=== PATIENT | female | born 1960 | race Caucasian/White ===

== ENCOUNTER → 2016-12-20 | Outpatient (CLI) | payer BC, OTHER ==
[~2016-12-20] MED LIST: CLON0.5T20 PO; HYDR-5688 PO; LINE1TAB7 PO; SENN-61 PO; VTMB122500 SL
== END | disposition home or self-care (01) ==
LOC: C.LABPVFM 15:54
PROVIDERS: ATTEND Nurse Practitioner
DX: N39.0 Urinary tract infection, site not specified (principal)

== ENCOUNTER → 2017-03-24 | Outpatient (CLI) | payer BC ==
[2017-03-28 14:28] LABS: HERPES SIMPLEX CULT SOURCE GENITAL-VULVA; HERPES SIMPLEX VIRUS CULT ISOLATED (NOT ISOLATED)
[2017-03-29 11:33] LABS: HSVTYPE1REFLEX ONLY!DON'T ORDR ISOLATED (NOT ISOLATED); HSVTYPE2REFLEX ONLY!DON'T ORDR NOT ISOLATED (NOT ISOLATED)
== END | disposition home or self-care (01) ==
LOC: C.LABSPEC 13:11
PROVIDERS: ATTEND Physician Assistant
DX: N76.6 Ulceration of vulva (principal)

== ENCOUNTER → 2017-03-24 | Outpatient (CLI) | payer BC | END | disposition home or self-care (01) | LOC: C.LABSPEC 14:09 → C.PAPS 14:11 | PROVIDERS: ATTEND Physician Assistant | DX: Z12.4 Encounter for screening for malignant neoplasm of cervix (principal) ==

== ENCOUNTER → 2017-06-12 | Outpatient (CLI) | payer BC ==
--- NOTE | 2017-06-13 07:54 | MAMMOGRAPHY REPORT ---
BILATERAL DIGITAL SCREENING MAMMOGRAM TOMOSYNTHESIS WITH CAD: 06/12/2017 CLINICAL HISTORY: Routine screening. Patient has no complaints. TECHNIQUE: Breast tomosynthesis in addition to standard 2D mammography was performed. Current study was also evaluated with a Computer Aided Detection (CAD) system. COMPARISON: Comparison is made to exams dated: 06/09/2016 mammogram, 01/07/2014 mammogram, 11/23/2012 mammogram, 01/01/2010 mammogram - [facility], and 12/19/2008. BREAST COMPOSITION: The tissue of both breasts is almost entirely fatty. FINDINGS: There has been no significant interval change comparing to prior mammograms. No new suspi cious mass, architectural distortion or cluster of microcalcifications is seen. IMPRESSION: ACR BI-RADS CATEGORY 1: NEGATIVE There is no mammographic evidence of malignancy. A 1 year screening mammogram is recommended. The pa tient will receive written notification of the results. Approximately 10% of breast cancers are not detected with mammography. A negative mammographic report should not delay biopsy if a clinically suggestive mass is present. Ashleigh Patel M.D. ay/:06/12/2017 18:38:[address] Sql Developer: Sharon HERNANDEZ(R)(M), [facility] letter sent: Normal 1/2 BI-RADS Code: ACR BI-RADS Category 1: Negative
== END | disposition home or self-care (01) ==
LOC: C.MAMM 12:00
PROVIDERS: ATTEND Family Medicine
DX: Z12.31 Encounter for screening mammogram for malignant neoplasm of breast (principal)

== ENCOUNTER → 2018-01-25 | Outpatient (CLI) | payer BC ==
[2018-01-25 13:01] LABS: HEMOGLOBIN A1C 5.8 % (4.5-5.6)
[2018-01-25 13:02] LABS: BLOOD UREA NITROGEN 16 mg/dl (7-18); CALCIUM 8.6 mg/dl (8.5-10.1); CARBON DIOXIDE 26 mmol/L (21-32); CHOLESTEROL 192 mg/dl (0-200); GLUCOSE 90 mg/dl (70-99); LDL CHOLESTEROL CALCULATED 113 mg/dl; SODIUM 142 mmol/L (136-145)
== END | disposition home or self-care (01) ==
LOC: C.LABPVFM 08:14
PROVIDERS: ATTEND Family Medicine
DX: G25.81 Restless legs syndrome (principal)

== ENCOUNTER 2021-08-06 00:21 | Inpatient (IN) ==
[2021-08-06] MEDS ORDERED: SODIUM CHLORIDE 0.9% 1000ML 1,000 ML IV ONE (00:35)
--- NOTE | 2021-08-06 00:39 | Emergency Department Note ---
Impression & Plan Headache, UTI (urinary tract infection), Back pain ADMIT ED Provider Note HPI: The patient is a 61-year-old female who presents the emergency department with a chief complaint of headache and some lower back pain is been ongoing for about the past 8 days after she had a fall down 4 hard wooden stairs inside her home. Patient states this happened 8 days ago. Patient states she has had continuous headaches during this time, they seem to wax and wane in severity. Patient states it was more severe today. States it is generalized. She was concerned that she may have possibly suffered a concussion during her fall she did hit the back of her head. Patient also states that throughout the day she has had some chills, subjective fevers. She also complains of some pain in her lower back. Denies any abdominal pain, denies any nausea or vomiting. On arrival here to the ED the patient is alert, she is hemodynamically stable, she is in no acute distress on my initial assessment. ROS: -MSK: Lower back pain -Neuro: Headache status post fall 5 days ago -General: Subjective fever/chills *10 point review systems was conducted and is otherwise negative unless stated above *Outpatient medications and allergy history reviewed PE: General: Alert, NAD HEENT: Normocephalic, atraumatic Eyes: Extraocular eye movement is intact, no scleral erythema Pulmonary: Clear to auscultation bilaterally, no wheezing Cardio: Regular rate and rhythm GI: Abdomen is soft, nontender : No suprapubic tenderness MSK: No evidence of trauma or malformation of the extremities, no edema, there is mild tenderness in the lower lumbar spine region to palpation laterally Skin: No evidence of rash Neuro: Alert, no focal deficits Psychiatric: Cooperative aerographer: - An order was placed for continuous cardiac monitoring - Patient was noted to be in sinus rhythm with rate of 90 CT HEAD: No intracranial hemorrhage, mass-effect or midline shift. There is no abnormal extra axial fluid collection. No evidence of acute infarct. Mild periventricular white matter hypodensities are most consistent with chronic micro-angiopathy. The visualized paranasal sinuses and mastoid air cells are clear. No fracture. Radiologist: Daksha Mendiola MD CT L SPINE: No fracture or malalignment. Degenerative changes spine. Incidentally noted 1.6 cm left calculus within the renal pelvis. Mild left hydronephrosis. Radiologist: Daksha Mendiola MD Medical Decision Making: Patient presented to the emergency department with multiple issues, she has had some headaches since she had a fall 5 days ago, she states that she has also had some lower back pain. In addition patient has had some generalized feeling of myalgias and chills and subjective fevers. CT imaging of the head was obtained that shows no evidence of intracranial bleeding, CT imaging of the L-spine was also obtained and shows no fracture however there is an incidentally noted 1.6 cm left calculus within the renal pelvis with associated mild hydronephrosis. Upon finding this I did discuss his symptoms with the patient, she tells me she has had some left flank pain recently, states she is also had dysuria. Urinalysis was obtained and does show evidence of infection, renal function is within normal limits, I discussed the above findings with on-call urology, Dr. Adam, who did recommend admission and will consult on the case for possible st enting later today. I discussed this with the patient she is in agreement. She does have penicillin allergy and therefore was given a dose of ciprofloxacin via IV for urinary tract infection and obstructing stone. Patient was admitted in stable condition for further care. Diagnosis: 1. Headache status post fall 2. Urinary tract infection 3. Left-sided kidney stone with obstruction/hydronephrosis 4. Lower back pain Disposition: Admission Flynn Wade DO Emergency Medicine Past Med/Surg History Medical History Dyspareunia Herpes, genital Vaginal dryness Vertigo Surgical History Gastric bypass status for obesity H/O tubal ligation Hx of tonsillectomy Family History Aunt Breast cancer Mother Diabetes Grandmother Diabetes Myocardial infarction Grandfather Myocardial infarction Uncle Prostate cancer Denies family history of Ovarian cancer Social History Smoking Status: Never smoker Second Hand Exposure: No; Hx Alcohol Use: Yes Hx Substance Use: No marital status: Current Living Situation: Spouse current occupational status: employed Feels Safe at Home: Yes caffeine: Yes (tea) Dental Care, Regularly: Yes Seatbelt Use: always Sunscreen Use: Yes Allergies Allergies Allergy/AdvReac Type Severity Reaction Status Date / Time amoxicillin Allergy Mild Rash Verified 08/06/21 00:33 Penicillins Allergy Unknown HIVES/RASH Verified 08/06/21 00:33 Home Meds Home Medications Medication Instructions Recorded Confirmed tramadol 50 mg tablet 50 - 100 mg PO Q6H PRN 08/06/21 08/06/21 Previous Rx's Medication Instructions Recorded valacyclovir 1 gram tablet 1,000 mg PO DAILY 90 Days #90 tab 09/17/20 estradiol (Estring) 1 vag ring VAGINAL Q90D #1 ea 10/30/20 clonazepam 0.5 mg tablet 0.5 mg PO HS #30 tab 06/01/21 prednisone 50 mg tablet 50 mg PO DAILY #5 tab 08/02/21 naproxen 500 mg tablet 500 mg PO BID PRN #14 tab 08/06/21 oxycodone-acetaminophen 5 mg-325 1 tab PO Q8H PRN #14 tab 08/06/21 mg tablet (Percocet) sulfamethoxazole 800 1 tab PO BID 7 Days #14 tab 08/06/21 mg-trimethoprim 160 mg tablet (Bactrim DS) tamsulosin 0.4 mg capsule (Flomax) 0.4 mg PO DAILY #14 cap 08/06/21 Results & Data (ED) Vital Signs Vital Signs - 24 hr 08/06/21 00:28 08/06/21 01:11 08/06/21 01:38 Temperature 37.8 C H Temperature Source Oral Pulse Rate 122 H 109 H 107 H Pulse Rate from SpO2 Sensor 109 H Respiratory Rate 18 22 21 Respiratory Effort / Characteristics Non-Labored Respiratory Depth Normal Blood Pressure 156/75 H Blood Pressure Mean 102 Pulse Oximetry 96 94 Oxygen Delivery Method Room Air Sepsis Recent Fever Within 48 Hours No Sepsis New/Unexplained Change in Mental Status No Sepsis Action Taken by Nursing No Action Required 08/06/21 02:00 08/06/21 02:30 08/06/21 03:00 Temperature Temperature Source Pulse Rate 105 H 101 H 101 H Pulse Rate from SpO2 Sensor Respiratory Rate 19 20 14 Respiratory Effort / Characteristics Respiratory Depth Blood Pressure 114/69 101/56 L Blood Pressure Mean 84 71 Pulse Oximetry Oxygen Delivery Method Sepsis Recent Fever Within 48 Hours Sepsis New/Unexplained Change in Mental Status Sepsis Action Taken by Nursing 08/06/21 03:30 08/06/21 04:00 08/06/21 04:30 Temperature Temperature Source Pulse Rate 99 H 94 H 92 H Pulse Rate from SpO2 Sensor Respiratory Rate 18 19 17 Respiratory Effort / Characteristics Respiratory Depth Blood Pressure 102/55 L Blood Pressure Mean 70 Pulse Oximetry Oxygen Delivery Method Sepsis Recent Fever Within 48 Hours Sepsis New/Unexplained Change in Mental Status Sepsis Action Taken by Nursing 08/06/21 05:00 08/06/21 05:30 08/06/21 06:00 Temperature Temperature Source Pulse Rate 90 89 96 H Pulse Rate from SpO2 Sensor Respiratory Rate 16 18 19 Respiratory Effort / Characteristics Respiratory Depth Blood Pressure 107/59 L 105/62 Blood Pressure Mean 75 76 Pulse Oximetry Oxygen Delivery Method Sepsis Recent Fever Within 48 Hours Sepsis New/Unexplained Change in Mental Status Sepsis Action Taken by Nursing Laboratory Data Result diagrams: 08/06/21 00:26 08/06/21 00:26 Lab Results 08/06/21 08/06/21 08/06/21 Range/Units 00:26 00:26 03:40 WBC 5.81 (4.8-10.8) K/uL RBC 4.24 (4.2-5.4) M/uL Hgb 13.2 (12.0-16.0) g/dL Hct 39.8 (37-47) % MCV 93.9 (80-100) fL MCH 31.1 (25-34) pg MCHC 33.2 (32-36) g/dL RDW Std Deviation 44.4 (36.4-46.3) fL RDW Coeff of Sachi 12.9 (11.5-14.5) % Plt Count 163 (130-400) K/uL MPV 10.2 (7.4-10.4) fL Immature Gran % (Auto) 0.5 % Neut % (Auto) 92.6 % Lymph % (Auto) 6.5 % [place] % (Auto) 0.2 % Eos % (Auto) 0.0 % Baso % (Auto) 0.2 % Neut # (Auto) 5.38 (1.4-6.5) K/uL Lymph # (Auto) 0.38 L (1.2-3.4) K/uL [place] # (Auto) 0.01 L (0.11-0.59) K/uL Eos # (Auto) 0.00 (0-0.5) K/uL Baso # (Auto) 0.01 (0-0.2) K/uL Immature Gran # (Auto) 0.03 H (0.00-0.02) K/uL Sodium 140 (136-145) mmol/L Potassium 3.9 (3.5-5.1) mmol/L Chloride 106 (98-107) mmol/L Carbon Dioxide 27 (21-32) mmol/L Anion Gap 7 (3-11) BUN 17 (6-23) mg/dl Creatinine 0.69 (0.6-1.2) mg/dl Est Cr Clr Drug Dosing 93.2 ml/min Est GFR ( Amer) 108.9 ml/min Est GFR (Non-Af Amer) 94.0 ml/min BUN/Creatinine Ratio 24.6 H (10-20) Glucose 118 H (70-99(Fasting)) mg/dl Calcium 8.7 (8.5-10.1) mg/dl Total Bilirubin 0.6 (0.2-1.0) mg/dl AST 25 (13-39) U/L ALT 47 (7-52) U/L Alkaline Phosphatase 82 (34-104) U/L Total Protein 6.1 (6.0-8.3) gm/dl Albumin 3.7 (3.4-5.0) gm/dl Globulin 2.4 L (2.5-4.0) gm/dl Albumin/Globulin Ratio 1.5 (0.9-2) Urine Color Yellow Urine Appearance Turbid A (Clear) Urine pH 5.0 (4.5-7.5) Ur Specific [place] 1.020 (1.000-1.030) Urine Protein 2+ H (Negative) Urine Glucose (UA) Negative (Negative) Urine Ketones Trace H (Negative) Urine Blood 3+ H (Negative) Urine Nitrite Positive A (Negative) Urine Bilirubin Negative (Negative) Urine Urobilinogen Negative (Negative) Ur Leukocyte Esterase 3+ H (Negative) Urine WBC (Auto) >30 H (0-5) /hpf Urine RBC (Auto) 5-10 H (0-4) /hpf U Hyaline Cast (Auto) 1-5 (0-5) /lpf U Epithel Cells (Auto) >30 H (0-5) /lpf Urine Bacteria (Auto) 4+ H (Negative) Urine Yeast Not Reportable SARS-CoV-2, RNA, NAAT (NEGATIVE) 08/06/21 Range/Units 06:07 WBC (4.8-10.8) K/uL RBC (4.2-5.4) M/uL Hgb (12.0-16.0) g/dL Hct (37-47) % MCV (80-100) fL MCH (25-34) pg MCHC (32-36) g/dL RDW Std Deviation (36.4-46.3) fL RDW Coeff of Sachi (11.5-14.5) % Plt Count (130-400) K/uL MPV (7.4-10.4) fL Immature Gran % (Auto) % Neut % (Auto) % Lymph % (Auto) % [place] % (Auto) % Eos % (Auto) % Baso % (Auto) % Neut # (Auto) (1.4-6.5) K/uL Lymph # (Auto) (1.2-3.4) K/uL [place] # (Auto) (0.11-0.59) K/uL Eos # (Auto) (0-0.5) K/uL Baso # (Auto) (0-0.2) K/uL Immature Gran # (Auto) (0.00-0.02) K/uL Sodium (136-145) mmol/L Potassium (3.5-5.1) mmol/L Chloride (98-107) mmol/L Carbon Dioxide (21-32) mmol/L Anion Gap (3-11) BUN (6-23) mg/dl Creatinine (0.6-1.2) mg/dl Est Cr Clr Drug Dosing ml/min Est GFR ( Amer) ml/min Est GFR (Non-Af Amer) ml/min BUN/Creatinine Ratio (10-20) Glucose (70-99(Fasting)) mg/dl Calcium (8.5-10.1) mg/dl Total Bilirubin (0.2-1.0) mg/dl AST (13-39) U/L ALT (7-52) U/L Alkaline Phosphatase (34-104) U/L Total Protein (6.0-8.3) gm/dl Albumin (3.4-5.0) gm/dl Globulin (2.5-4.0) gm/dl Albumin/Globulin Ratio (0.9-2) Urine Color Urine Appearance (Clear) Urine pH (4.5-7.5) Ur Specific [place] (1.000-1.030) Urine Protein (Negative) Urine Glucose (UA) (Negative) Urine Ketones (Negative) Urine Blood (Negative) Urine Nitrite (Negative) Urine Bilirubin (Negative) Urine Urobilinogen (Negative) Ur Leukocyte Esterase (Negative) Urine WBC (Auto) (0-5) /hpf Urine RBC (Auto) (0-4) /hpf U Hyaline Cast (Auto) (0-5) /lpf U Epithel Cells (Auto) (0-5) /lpf Urine Bacteria (Auto) (Negative) Urine Yeast SARS-CoV-2, RNA, NAAT NEGATIVE (NEGATIVE) Administered Medications Discontinued Medications Sodium Chloride (Nss 1000ml) 1,000 mls @ 999 mls/hr IV .[id number] ONE Stop: 08/06/21 01:35 Last Infusion: 08/06/21 03:50 Dose: 0 mls/hr Documented by: [id number] Admin: 08/06/21 02:09 Dose: 999 mls/hr Documented by: [id number] Ciprofloxacin (Cipro / D5w) 400 mg in 200 mls @ 100 mls/hr IV NOW STA; Protocol Stop: 08/06/21 06:36 Last Admin: 08/06/21 04:43 Dose: 100 mls/hr Documented by: [id number] Trimethoprim/Sulfamethoxazole (Sulfamethoxazole/Trimethoprim Ds 800/160mg Tab) 1 tab PO NOW ONE Stop: 08/06/21 04:13 Last Admin: 08/06/21 04:41 Dose: Not Given Documented by: [id number] Discharge Plan Visit Data Chief Complaint: Headache Stated Complaint: HEADACHE/SHAKY/CHILLS ED Provider: Flynn Wade Discharge Problem: Headache, UTI (urinary tract infection), Back pain Patient Disposition: Home - Self-Care Condition: Good Discharge Instructions Krames/Other Patient Handouts: Kidney Stone (Urine), ED [facility] UTI Activity Restrictions/Additional Instructions: Please follow-up with urology within the next 2 to 3 days for reassessment, please return to the emergency department with any new or worsening symptoms. Please take your medications as prescribed. Forms Stand Alone Forms: My [facility], Virtual Emergency Department, Important Visit Information Prescriptions Prescriptions: New sulfamethoxazole-trimethoprim [Bactrim DS] 800-160 mg tablet 1 tab PO BID 7 Days Qty: 14 RF: 0 naproxen 500 mg tablet 500 mg PO BID PRN (Reason: pain) Qty: 14 RF: 0 oxycodone-acetaminophen [Percocet] 5-325 mg tablet 1 tab PO Q8H PRN (Reason: pain) Qty: 14 RF: 0 tamsulosin [Flomax] 0.4 mg capsule 0.4 mg PO DAILY Qty: 14 RF: 0 No Action clonazepam 0.5 mg tablet 0.5 mg PO HS Qty: 30 RF: 5 prednisone 50 mg tablet 50 mg PO DAILY Qty: 5 RF: 0 valacyclovir 1 gram tablet 1,000 mg PO DAILY 90 Days Qty: 90 RF: 0 Estring 2 mg (7.5 mcg /24 hour) ring 1 vag ring vaginal Q90D Qty: 1 RF: 3 tramadol 50 mg tablet 50 - 100 mg PO Q6H PRN (Reason: pain) RF: 0 Referrals Referrals: Birgit Chan MD [Primary Care Provider] - Yinka Adam MD [Physician] - Discharge Problem: Headache Qualifiers: Headache type: unspecified Headache chronicity pattern: unspecified pattern Intractability: not intractable Qualified Code(s): R51.9 - Headache, unspecified UTI (urinary tract infection) Qualifiers: Urinary tract infection type: site unspecified Hematuria presence: with hematuria Qualified Code(s): N39.0 - Urinary tract infection, site not specified Back pain Qualifiers: Back pain location: low back pain Chronicity: unspecified Back pain laterality: unspecified Sciatica presence: without sciatica Qualified Code(s): M54.50 - Low back pain, unspecified
[2021-08-06 01:05] LABS: Basophils # (auto) 0.01 K/uL (0-0.2); Basophils % (auto) 0.2 %; Hematocrit (blood only) 39.8 % (37-47); Hemoglobin 13.2 g/dL (12.0-16.0); Immature Granulocytes # (auto) 0.03 K/uL (0.00-0.02); Immature Granulocytes % (auto) 0.5 %; Lymphocytes # (auto) 0.38 K/uL (1.2-3.4); Lymphocytes % (auto) 6.5 %; Mean Corpuscular Hemoglobin 31.1 pg (25-34); Mean Corpuscular Hgb Conc 33.2 g/dL (32-36); Mean Corpuscular Volume 93.9 fL (80-100); Mean Platelet Volume 10.2 fL (7.4-10.4); Monocytes # (auto) 0.01 K/uL (0.11-0.59); Monocytes % (auto) 0.2 %; Neutrophils # (auto) 5.38 K/uL (1.4-6.5); Neutrophils % (auto) 92.6 %; Platelet Count 163 K/uL (130-400); RDW Coefficient of Variation 12.9 % (11.5-14.5); RDW Standard Deviation 44.4 fL (36.4-46.3); Red Blood Count 4.24 M/uL (4.2-5.4); White Blood Count 5.81 K/uL (4.8-10.8)
[2021-08-06 01:13] LABS: Albumin Globulin Ratio 1.5 (0.9-2); Albumin Level 3.7 gm/dl (3.4-5.0); BUN Creatinine Ratio 24.6 (10-20); Bilirubin,Total 0.6 mg/dl (0.2-1.0); Calcium 8.7 mg/dl (8.5-10.1); Creatinine Clr Calc Pharmacy 93.2 ml/min; Est GFR (African American) 108.9 ml/min; Globulin 2.4 gm/dl (2.5-4.0); Potassium 3.9 mmol/L (3.5-5.1); Total Protein 6.1 gm/dl (6.0-8.3)
[2021-08-06 04:02] LABS: Appearance Urine Turbid (Clear); Bacteria Urine Automated 4+ (Negative); Bilirubin Urine Negative (Negative); Blood Urine 3+ (Negative); Color Urine Yellow; Epithelial Cell Urine Auto >30 /lpf (0-5); Glucose Urine UA Negative (Negative); Ketones Urine Trace (Negative); Leukocyte Esterase Urine 3+ (Negative); Nitrite Urine Positive (Negative); Protein Urine 2+ (Negative); Urobilinogen Urine Negative (Negative); WBC Urine Automated >30 /hpf (0-5)
[2021-08-06] MEDS ORDERED: SULFAMETHOXAZOLE/TRIMETHOPRIM DS 800/160MG TAB PO ONE (04:12)
[2021-08-06] MEDS ORDERED: CIPROFLOXACIN / D5W 400 MG/200 ML BAG IV STA (04:37)
--- NOTE | 2021-08-06 05:36 | History & Physical Report ---
Date of Service August 06, 2021 Assessment & Plan (1) Nephrolithiasis: Plan: Patient with large 1.6cm stone noted in the left renal pelvis with hydronephrosis. +UA. Complaining of left flank pain as well as intermittent subjective fevers, rigors and nausea. UA is suggestion of infection - bacteria present. Concerning for infected kidney stone. At this time she is afebrile, HD stable, non-toxic in appearance. Pain is well controlled -Admit to medical -Follow cultures, urine sent from ER. Blood cultures ordered -IVF - LR at 80mL/hr x 2 liters -zofran PRN nausea -Tylenol PRN fever -Tramadol PRN Pain -Urology consultation appreciated -Patient is NPO for possible stent placement today (2) UTI (urinary tract infection): Plan: As above. Concern for infected kidney stone. Patient afebrile, HD stable at this time. -Follow cultures -Continue Cipro 400mg IV BID -Urology consultation appreciated (3) Back pain: Plan: Left sided more than right. Most likely secondary to #1 and 2 above -Tramadol PRN (4) RLS (restless legs syndrome): Plan: Chronic. -Continue Clonazepam 0.5mg po qHS as needed for leg cramps Plan: F/E/N - LR at 80 mL/hr 2 liters, electrolytes WNL, NPO for now Ppx - SCDs Code - Full Dispo - Admit to medical History of Present Illness Chief Complaint: back pain Primary Care Provider: Birgit Chan MD Aba Smalls is a 61yo female presenting with infected nephrolithiasis. Patient has been having severe back pain as well as rigors. She fell down the stairs appx 1 week ago while carrying a basket of laundry. She reports losing her footing - stocking feet on wooden stairs. She fell down 5 steps and struck her head and her lower back. She has been having significant back pain since. Was seen by her PCP 3 days ago and had x-rays taken which showed a sacral fracture. She was started on Prednisone. Has been developing intermittent nausea for the last several days with intermittent subjective fevers. Also had several episodes of rigors. She denies abdominal pain, vomiting, dysuria, frequency or urgency. CT of the lumbar spine revealed a 1.6 cm calculus in the left renal pelvis with mild hydronephrosis. UA is suggestive of infection Allergies Allergy/AdvReac Type Severity Reaction Status Date / Time amoxicillin Allergy Mild Rash Verified 08/06/21 00:33 Penicillins Allergy Unknown HIVES/RASH Verified 08/06/21 00:33 Home Medications Medication Instructions Recorded Confirmed Type valacyclovir 1 gram tablet 1,000 mg PO DAILY 90 Days #90 tab 09/17/20 08/06/21 Rx estradiol (Estring) 1 vag ring VAGINAL Q90D #1 ea 10/30/20 08/06/21 Rx clonazepam 0.5 mg tablet 0.5 mg PO HS #30 tab 06/01/21 08/06/21 Rx prednisone 50 mg tablet 50 mg PO DAILY #5 tab 08/02/21 08/06/21 Rx naproxen 500 mg tablet 500 mg PO BID PRN #14 tab 08/06/21 Rx oxycodone-acetaminophen 5 mg-325 1 tab PO Q8H PRN #14 tab 08/06/21 Rx mg tablet (Percocet) sulfamethoxazole 800 1 tab PO BID 7 Days #14 tab 08/06/21 Rx mg-trimethoprim 160 mg tablet (Bactrim DS) tamsulosin 0.4 mg capsule (Flomax) 0.4 mg PO DAILY #14 cap 08/06/21 Rx tramadol 50 mg tablet 50 - 100 mg PO Q6H PRN 08/06/21 08/06/21 History Past Med/Surg History Medical History Dyspareunia Herpes, genital Vaginal dryness Vertigo Surgical History Gastric bypass status for obesity H/O tubal ligation Hx of tonsillectomy Family History Aunt Breast cancer Mother Diabetes Grandmother Diabetes Myocardial infarction Grandfather Myocardial infarction Uncle Prostate cancer Denies family history of Ovarian cancer Social History Smoking Status: Never smoker Second Hand Exposure: No; Hx Alcohol Use: Yes Hx Substance Use: No marital status: Current Living Situation: Spouse current occupational status: employed Feels Safe at Home: Yes caffeine: Yes (tea) Dental Care, Regularly: Yes Seatbelt Use: always Sunscreen Use: Yes Review of Systems Review of Systems: All systems reviewed & are unremarkable except as noted in HPI & below Physical Exam Physical Exam: General: patient resting comfortably, NAD, non-toxic in appearance, AA&O x 4 Skin: warm, dry, intact, no rashes or lesions HEENT: NC/AT, PERRL, EOMI, anicteric sclera, conjunctiva without injection, external ear normal to inspection and nontender, nares patent, moist mucus membranes, dentition intact, no oropharyngeal lesions, neck supple, trachea midline, no LAD, no thyromegaly, no JVD Heart: +S1/S2, regular, no m/r/g Lungs: equal air entry bilaterally, no rales/rhonchi/wheezes Abd: +BS, soft, NT/ND, no masses/organomegaly/ascites, left CVA tenderness Ext: warm, 2+ pulses in UE/LE bilaterally, no clubbing/cyanosis or edema Neuro: nonfocal, patient AA&O x 4, speech intact, no facial droop, moving all extremities on command with equal strength 5/5 Results & Data Results & Data ([facility]) Vital Signs (Past 12 Hours) Vital Signs Temp Pulse Resp BP Pulse Ox 08/06/21 03:30 99 H 18 08/06/21 03:00 101 H 14 101/56 L 08/06/21 02:30 101 H 20 08/06/21 02:00 105 H 19 114/69 08/06/21 01:38 107 H 21 08/06/21 01:11 109 H 22 94 08/06/21 00:28 37.8 C H 122 H 18 156/75 H 96 Laboratory Results Laboratory Results WBC 5.81 K/uL (4.8-10.8) 08/06/21 00:26 RBC 4.24 M/uL (4.2-5.4) 08/06/21 00:26 Hgb 13.2 g/dL (12.0-16.0) 08/06/21 00:26 Hct 39.8 % (37-47) 08/06/21 00:26 MCV 93.9 fL (80-100) 08/06/21 00:26 MCH 31.1 pg (25-34) 08/06/21 00: MCHC 33.2 g/dL (32-36) 08/06/21 00: RDW Std Deviation 44.4 fL (36.4-46.3) 08/06/21 00: RDW Coeff of Sachi 12.9 % (11.5-14.5) 08/06/21 00: Plt Count 163 K/uL (130-400) 08/06/21 00: MPV 10.2 fL (7.4-10.4) 08/06/21 00: Immature Gran % (Auto) 0.5 % 08/06/21 00: Neut % (Auto) 92.6 % 08/06/21: Lymph % (Auto) 6.5 % 08/06/21: Starr % (Auto) 0.2 % 08/06/21 00: Eos % (Auto) 0.0 % 08/06/21 00: Baso % (Auto) 0.2 % 08/06/21 00: Neut # (Auto) 5.38 K/uL (1.4-6.5) 08/06/21 00: Lymph # (Auto) 0.38 K/uL (1.2-3.4) L 08/06/21 00: Starr # (Auto) 0.01 K/uL (0.11-0.59) L 08/06/21 00:26 Eos # (Auto) 0.00 K/uL (0-0.5) 08/06/21 00: Baso # (Auto) 0.01 K/uL (0-0.2) 08/06/21 00:26 Immature Gran # (Auto) 0.03 K/uL (0.00-0.02) H 08/06/21 00:26 Sodium 140 mmol/L (136-145) 08/06/21 00: Potassium 3.9 mmol/L (3.5-5.1) 08/06/21 00: Chloride 106 mmol/L (98-107) 08/06/21 00: Carbon Dioxide 27 mmol/L (21-32) 08/06/21 00: Anion Gap 7 (3-11) 08/06/21 00:26 BUN 17 mg/dl (6-23) 08/06/21 00:26 Creatinine 0.69 mg/dl (0.6-1.2) 08/06/21 00:26 Est Cr Clr Drug Dosing 93.2 ml/min 08/06/21 00:26 Est GFR ( Amer) 108.9 ml/min 08/06/21 00:26 Est GFR (Non-Af Amer) 94.0 ml/min 08/06/21 00:26 BUN/Creatinine Ratio 24.6 (10-20) H 08/06/21 00:26 Glucose 118 mg/dl (70-99(Fasting)) H 08/06/21 00:26 Calcium 8.7 mg/dl (8.5-10.1) 08/06/21 00:26 Total Bilirubin 0.6 mg/dl (0.2-1.0) 08/06/21 00:26 AST 25 U/L (13-39) 08/06/21 00:26 ALT 47 U/L (7-52) 08/06/21 00:26 Alkaline Phosphatase 82 U/L (34-104) 08/06/21 00:26 Total Protein 6.1 gm/dl (6.0-8.3) 08/06/21 00:26 Albumin 3.7 gm/dl (3.4-5.0) 08/06/21 00:26 Globulin 2.4 gm/dl (2.5-4.0) L 08/06/21 00:26 Albumin/Globulin Ratio 1.5 (0.9-2) 08/06/21 00:26 Urine Color Yellow 08/06/21 03:40 Urine Appearance Turbid (Clear) A 08/06/21 03:40 Urine pH 5.0 (4.5-7.5) 08/06/21 03:40 Ur Specific [place] 1.020 (1.000-1.030) 08/06/21 03:40 Urine Protein 2+ (Negative) H 08/06/21 03:40 Urine Glucose (UA) Negative (Negative) 08/06/21 03:40 Urine Ketones Trace (Negative) H 08/06/21 03:40 Urine Blood 3+ (Negative) H 08/06/21 03:40 Urine Nitrite Positive (Negative) A 08/06/21 03:40 Urine Bilirubin Negative (Negative) 08/06/21 03:40 Urine Urobilinogen Negative (Negative) 08/06/21 03:40 Ur Leukocyte Esterase 3+ (Negative) H 08/06/21 03:40 Urine WBC (Auto) >30 /hpf (0-5) H 08/06/21 03:40 Urine RBC (Auto) 5-10 /hpf (0-4) H 08/06/21 03:40 U Hyaline Cast (Auto) 1-5 /lpf (0-5) 08/06/21 03:40 U Epithel Cells (Auto) >30 /lpf (0-5) H 08/06/21 03:40 Urine Bacteria (Auto) 4+ (Negative) H 08/06/21 03:40 Urine Yeast Not Reportable 08/06/21 03:[address] Head - No intracranial hemorrhage, mass-effect or midline shift. THere is no abnormal extra axial fluid collection. No eidence of acute infarct. Mild periventricular white matter hypodensities are most consistent with chronic micro-angiopathy. The visualized paranasal sinuses and mastoid air cells are clear. No fracture. CT L-spine - No fracture or malalignment. Degenerative changes spine. Incidentally noted 1.6cm left calculus within the renal pelvis. Mild left hydronephrosis. Code Status & VTE Plan VTE Prophylaxis Plan VTE Prophylaxis will be ordered: Yes PG Care Time/CCT Total # of Minutes Spent Total Time Spent with Patient: Total time spent is greater than 50% in coordination of care (as documented) at patient's floor/unit and/or counseling patient: Coding Level of Care Code 38953 Initial Inpt Care Lvl 3 Diagnoses UTI (urinary tract infection) N39.0; R31.9 Hematuria presence: with hematuria Urinary tract infection type: site unspecified Back pain M54.50 Back pain laterality: unspecified Back pain location: low back pain Chronicity: unspecified Sciatica presence: without sciatica RLS (restless legs syndrome) G25.81 Nephrolithiasis N20.0 (1) UTI (urinary tract infection) Hematuria presence: with hematuria Urinary tract infection type: site unspecified Qualified Code(s): N39.0 - Urinary tract infection, site not specified; R31.9 - Hematuria, unspecified (2) Back pain Back pain laterality: unspecified Back pain location: low back pain Chronicity: unspecified Sciatica presence: without sciatica Qualified Code(s): M54.50 - Low back pain, unspecified
--- NOTE | 2021-08-06 07:07 | CT Scan Report ---
HEAD CT NONCONTRAST CT DOSE: 1162.30 mGy.cm HISTORY: Headache. fall TECHNIQUE: Multiaxial CT images of the head were performed without the use of intravenous contrast. A utomated exposure control was utilized for this study. A dose lowering technique was utilized adheri ng to the principles of ALARA. Comparison: None. Findings: The paranasal sinuses and mastoid air cells are clear. The calvarium and skull base are int act. The ventricles and sulci are within normal limits. There is no mass, hematoma, midline shift, or acute infarct. Impression: No acute intracranial abnormality. ACT 112: Negative or not required by law. Electronically signed by: Murali Bryan M.D. 08/06/2021 7:06 AM
[2021-08-06] MEDS ORDERED: traMADol HCL 50 MG TABLET PO PRN (07:14)
[2021-08-06] MEDS ORDERED: ONDANSETRON INJ 2 MG/ML 2 ML VIAL IV PRN ×2 (07:14→11:23)
[2021-08-06] MEDS ORDERED: ACETAMINOPHEN 325 MG TAB PO PRN (07:14)
--- NOTE | 2021-08-06 07:34 | CT Scan Report ---
ABDOMEN AND PELVIS CT WITHOUT CONTRAST CT DOSE: 513.96 mGy.cm HISTORY: Low back pain. Urinary tract infection. eval for kidney stone TECHNIQUE: Multiaxial CT images of the abdomen and pelvis were performed without contrast. A dose lo wering technique was utilized adhering to the principles of ALARA. COMPARISON STUDY: None. FINDINGS: Mild dependent changes seen at the lung bases. No pneumoperitoneum. No pneumatosis. Nondisp laced transverse fracture through the S4 vertebral body. There is mild presacral edema at this locati on. A 1 cm sclerotic focus within the right acetabulum favors a bone island. No fractures within the lumbar spine. Postoperative changes consistent with prior Constantin-en-Y gastric bypass. Moderate left per inephric edema/fat stranding with mild left hydronephrosis. This is secondary to an obstructing 2.2 x 1.3 cm stone within the left renal pelvis/ureteropelvic junction. There is associated urothelial thi ckening within the left renal pelvis and proximal left ureter. Edema surrounding the pancreatic tail and left adrenal gland is likely secondary to the perinephric edema. No additional renal stones ident ified. No right-sided hydronephrosis. The unenhanced liver and spleen are unremarkable. Normal right adrenal gland. No retroperitoneal lymphadenopathy. Normal caliber abdominal aorta. No pelvic free flu id. The bladder, uterus, and adnexa are unremarkable. A pessary device is noted within the vagina. Cota boptimal evaluation for bowel pathology due to the lack of intravenous and oral contrast. However, th ere is no definite bowel wall thickening or obstruction. Colonic diverticulosis. No evidence for acut e diverticulitis. Prior cholecystectomy. IMPRESSION: 1. A 2.2 x 1.3 cm obstructing stone within the left renal pelvis/ureteropelvic junction resulting in mild hydronephrosis. 2. There is urothelial thickening within the left renal pelvis and proximal left ureter as well as mo derate left perinephric edema/fat stranding. This is likely reactive to the obstruction. A superimpos ed infection could also have a similar appearance. Recommend correlation with urinalysis. 3. Acute nondisplaced transverse fracture through the S4 vertebral body. 4. Colonic diverticulosis. No evidence for acute diverticulitis. 5. Postoperative changes as described above. ACT 112: Negative or not required by law. Electronically signed by: Murali Bryan M.D. 08/06/2021 7:32 AM
--- NOTE | 2021-08-06 08:06 | CT Scan Report ---
CT OF THE LUMBAR SPINE CLINICAL HISTORY: Fall 1 week ago, back pain COMPARISON STUDY: Lumbar spine radiograph July 2021. TECHNIQUE: Helical axial images of the lumbar spine were obtained. Sagittal and coronal reconstruct ions were viewed. Automated exposure control was utilized for the study. A dose lowering technique was utilized adhering to the principles of ALARA. FINDINGS: Please note that the CT of the abdomen and pelvis will be reported separately. A 2.2 x 1.3 cm left renal pelvis/ureteropelvic junction calculus is noted. There is left hydronephrosis. No acute lumbar spine fracture is noted. There is moderate disc space narrowing at L5-S1. There is moderate m ultilevel facet arthrosis. Central canal neural foramen are suboptimally assessed given CT technique. Prevertebral soft tissues are unremarkable. IMPRESSION: 1. No acute lumbar spine fracture or subluxation. 2. 2.2 x 1.3 cm left renal pelvis/ureteropelvic junction calculus which results in mild left hydronep hrosis. This is better depicted on the CT of the abdomen and pelvis which will be reported separately . 3. Moderate multilevel degenerative changes within the lumbar spine. ACT 112: Negative or not required by law. Electronically signed by: Scooter Bah M.D. 08/06/2021 8:05 AM
--- NOTE | 2021-08-06 08:19 | Urology Consultation ---
Date of Consultation August 06, 2021 Assessment & Plan (1) Left ureteral stone: (2) Hydronephrosis, left: (3) UTI (urinary tract infection): 61yo F with severe back and flank pain admitted with suspected UTI in the setting of an obstructing left UPJ stone. - Plan of care reviewed with Dr. Adam - CTAP reviewed - Large obstructing stone within the left renal pelvis/ureteropelvic junction resulting in mild hydronephrosis. - Temp 37.8C this morning, Labs reviewed - Wbc and creatinine normal. - UA on admission appears infected, urine culture pending. Blood cultures obtained and pending. - On IV Ciprofloxacin, follow cultures. - Discussed surgical intervention with left ureteral stent placement - She is agreeable. - Ureteral stents were discussed as well as post-operative issues and pain management. - Given her intractable flank pain and suspected urinary tract infection in the context of an obstructing left ureteral stone, will proceed with OR for Cystoscopy, Left Retrograde Pyelogram, Left ureteral stent placement. - Risks and benefits to be reviewed with patient by Dr. Adam. OR notified. Covid test negative. Covered with IV Ciprofloxacin. - Keep NPO. - Continue supportive care, antibiotic therapy, and pain management. - Will continue to follow. Supervising Physician Co-Signing Physician Notes Evaluated patient. Large stone and concern for infection so will proceed with left stent. Patient marked, consent obtained. History of Present Illness Reason for Consultation: Nephrolithiasis, UTI Attending Physician: Selene Fernandes MD History of Present Illness 61 year-old female patient who presented with severe back/flank pain, rigors, and nausea and was found to have a 2.2 x 1.3 cm obstructing stone within the left renal pelvis/ureteropelvic junction resulting in mild hydronephrosis. Her urinalysis on admission revealed 3+blood, positive nitrites, 3+leuks, >30WBC, 5- 10RBC, 4+bacteria. No leukocytosis. Creatinine normal. She was treated with IVF, pain medication, and antibiotics and admitted for further management. PMHx includes HSV infection, B12 deficiency, hx of tubal ligation CTAP IMPRESSION: 1. A 2.2 x 1.3 cm obstructing stone within the left renal pelvis/ureteropelvic junction resulting in mild hydronephrosis. 2. There is urothelial thickening within the left renal pelvis and proximal left ureter as well as moderate left perinephric edema/fat stranding. This is likely reactive to the obstruction. A superimposed infection could also have a similar appearance. Recommend correlation with urinalysis. 3. Acute nondisplaced transverse fracture through the S4 vertebral body. 4. Colonic diverticulosis. No evidence for acute diverticulitis. 5. Postoperative changes as described above. Pt examined at bedside in the ED this morning. Awake, resting in bed on arrival. Still with left flank and back pain, however has improved some with IV pain medication. Reports she has a headache at present. Temp 37.8 this morning. Reports having intermittent chills. Some nausea, no vomiting. Voiding without issues. Denies hematuria and dysuria. She has not had anything to eat/drink since yesterday evening. States she had a recent fall - she lost her footing and fell down the stairs at home. Was seen by her PCP 3 days ago and had x-rays taken which showed a sacral fracture. She denies prior hx of stones. Reports several of her family members have had stones. Allergies Allergy/AdvReac Type Severity Reaction Status Date / Time amoxicillin Allergy Intermediate Rash Verified 08/06/21 10:18 Penicillins Allergy Intermediate HIVES/RASH Verified 08/06/21 10:18 Home Medications Medication Instructions Recorded Confirmed Type valacyclovir 1 gram tablet 1,000 mg PO DAILY 90 Days #90 tab 09/17/20 08/06/21 Rx estradiol (Estring) 1 vag ring VAGINAL Q90D #1 ea 10/30/20 08/06/21 Rx clonazepam 0.5 mg tablet 0.5 mg PO HS #30 tab 06/01/21 08/06/21 Rx prednisone 50 mg tablet 50 mg PO DAILY #5 tab 08/02/21 08/06/21 Rx naproxen 500 mg tablet 500 mg PO BID PRN #14 tab 08/06/21 Rx oxycodone-acetaminophen 5 mg-325 1 tab PO Q8H PRN #14 tab 08/06/21 Rx mg tablet (Percocet) sulfamethoxazole 800 1 tab PO BID 7 Days #14 tab 08/06/21 Rx mg-trimethoprim 160 mg tablet (Bactrim DS) tamsulosin 0.4 mg capsule (Flomax) 0.4 mg PO DAILY #14 cap 08/06/21 Rx tramadol 50 mg tablet 50 - 100 mg PO Q6H PRN 08/06/21 08/06/21 History Patient History Medical History Dyspareunia Herpes, genital Vaginal dryness Vertigo Surgical History Gastric bypass status for obesity H/O tubal ligation Hx of tonsillectomy Family History Aunt Breast cancer Mother Diabetes Grandmother Diabetes Myocardial infarction Grandfather Myocardial infarction Uncle Prostate cancer Denies family history of Ovarian cancer Social History Smoking Status: Never smoker Second Hand Exposure: No; Hx Alcohol Use: Yes Hx Substance Use: No marital status: Current Living Situation: Spouse current occupational status: employed Feels Safe at Home: Yes caffeine: Yes (tea) Dental Care, Regularly: Yes Seatbelt Use: always Sunscreen Use: Yes Review of Systems Review of Systems: All systems reviewed & are unremarkable except as noted in HPI & below Physical Exam Constitutional: well developed and well nourished; no acute distress Neck: normal visual inspection Respiratory: normal respiratory effort and able to speak in complete sentences; no labored breathing and no audible wheezes Cardiovascular: Extremities: no calf tenderness Gastrointestinal (Abdomen): Inspection/Auscultation: abdomen normal to inspection; abdomen not distended Musculoskeletal: Head/Neck/Chest: normocephalic Skin: No visible rashes or lesions to exposed skin areas Neurologic: moves all extremities and awake Psychiatric: Orientation: alert, oriented x 3 and cooperative Genitourinary: left flank tenderness with palpation Results & Data ([facility]) Vital Signs (Past 12 Hours) Vital Signs Temp Pulse Pulse Resp BP BP Pulse Ox 08/06/21 07:18 84 16 112/56 L 98 08/06/21 06:00 96 H 19 105/62 08/06/21 05:30 89 18 08/06/21 05:00 90 16 107/59 L 08/06/21 04:30 92 H 17 08/06/21 04:00 94 H 19 102/55 L 08/06/21 03:30 99 H 18 08/06/21 03:00 101 H 14 101/56 L 08/06/21 02:30 101 H 20 08/06/21 02:00 105 H 19 114/69 08/06/21 01:38 107 H 21 08/06/21 01:11 109 H 22 94 08/06/21 00:28 37.8 C H 122 H 18 156/75 H 96 PG Care Time/CCT Total # of Minutes Spent Total Time Spent with Patient: Total time spent is greater than 50% in coordination of care (as documented) at patient's floor/unit and/or counseling patient: Coding Level of Care Code 73170 Inpt Consult Level 4 Diagnoses Left ureteral stone N20.1 UTI (urinary tract infection) N39.0; R31.9 Hematuria presence: with hematuria Urinary tract infection type: site unspecified Hydronephrosis, left N13.30 (1) UTI (urinary tract infection) Hematuria presence: with hematuria Urinary tract infection type: site unspecified Qualified Code(s): N39.0 - Urinary tract infection, site not specified; R31.9 - Hematuria, unspecified
[2021-08-06] MEDS: valACYclovir HCL 500 MG TABLET PO SCH (09:15)
[2021-08-06] MEDS ORDERED: ACETAMINOPHEN 1000 MG/100 ML IV IV PRN (09:25)
--- NOTE | 2021-08-06 09:31 | Medical Student Progress Note ---
Date of Service August 06, 2021 Assessment & Plan (1) Nephrolithiasis: Plan: This is a 61 year old female with a history of fibromyalgia and who presented to the ED for headache, chills, and back pain found to have a 2.2 by 1.3 cm kidney stone on CT s/p left ureteral stent. 1. Nephrolithiasis - CT A/P - 2.2 by 1.3 cm stone is left renal pelvis/ureteropelvic junction resulting in mild hydronephrosis - Uro following, left ureteral stent placed 08/06/21 - consideration of outpatient lithotripsy for stone resolution 2. Urinary tract infection, likely secondary to kidney stone - denies urinary symptoms - UA: 2+ protein, 3+ blood, nitrite positive, 3+ leukocyte esterase, 4+ bacteria - continue IV Cipro BID - urine and blood cx pending 3. Headache - fell and hit back of head on staircase 8 days ago - CT head showed no acute intracranial changes - tylenol for pain control 4. Back pain - CT A/P showed S4 transverse fracture - tylenol for pain control 5. Restless leg syndrome - continue home clonazepam 6. History of HSV - continue home valacyclovir PRN Diet: Regular Code status: Full code DVT Prophylaxis: SCDs (2) UTI (urinary tract infection): Hematuria presence: with hematuria Urinary tract infection type: site unspecified Qualified Code(s): N39.0 - Urinary tract infection, site not specified; R31.9 - Hematuria, unspecified (3) Headache: Headache chronicity pattern: unspecified pattern Headache type: unspecified Intractability: not intractable Qualified Code(s): R51.9 - Headache, unspecified (4) Back pain: Back pain laterality: unspecified Back pain location: low back pain Chronicity: unspecified Sciatica presence: without sciatica Qualified Code(s): M54.50 - Low back pain, unspecified Admission and Anticipated Discharge Date Admission Date: August 06, 2021 Supervising Attestation Medical Student Supervision Note: I was personally present during medical student patient encounter and independently interviewed and examined the patient and verified the may history and physical, reviewed labs and image studies, discussed the case with Junior Murray and agree with the findings and care plan. Obstructive uropathy from 2x1.3cm stone - s/p stent. continue IV abx, IVF anticipate d/c home in am if vitals stable. Subjective This morning, patient feels "not too good." She continues to have a headache which she describes as "constant." She denies photophobia and endorses neck pain. She continues to have flank pain, lower lumbar pain, and shaking chills. She denies sweats. She feels nauseated but denies vomiting. She denies urinary frequency, dysuria, hematuria. Review of Systems Review of Systems: per HPI Physical Exam Constitutional: + ill appearing Eyes: PERRL, conjunctivae normal, anicteric sclerae ENMT: external ear and nose normal, oropharynx normal Neck: trachea midline, no thyromegaly Respiratory: normal respiratory effort, lungs clear to auscultation Musculoskeletal: Head/Neck/Chest: + scalp tenderness (at back of head) Results & Data ([facility]) Vital Signs (Past 12 Hours) Vital Signs Temp Pulse Pulse Resp BP BP Pulse Ox 08/06/21 07:18 84 16 112/56 L 98 08/06/21 06:00 96 H 19 105/62 08/06/21 05:30 89 18 08/06/21 05:00 90 16 107/59 L 08/06/21 04:30 92 H 17 08/06/21 04:00 94 H 19 102/55 L 08/06/21 03:30 99 H 18 08/06/21 03:00 101 H 14 101/56 L 08/06/21 02:30 101 H 20 08/06/21 02:00 105 H 19 114/69 08/06/21 01:38 107 H 21 08/06/21 01:11 109 H 22 94 08/06/21 00:28 37.8 C H 122 H 18 156/75 H 96 Laboratory Results Laboratory Results - last 24 hr 08/06/21 08/06/21 08/06/21 00:26 00:26 03:40 WBC 5.81 RBC 4.24 Hgb 13.2 Hct 39.8 MCV 93.9 MCH 31.1 MCHC 33.2 RDW Std Deviation 44.4 RDW Coeff of Sachi 12.9 Plt Count 163 MPV 10.2 Immature Gran % (Auto) 0.5 Neut % (Auto) 92.6 Lymph % (Auto) 6.5 Antelope % (Auto) 0.2 Eos % (Auto) 0.0 Baso % (Auto) 0.2 Neut # (Auto) 5.38 Lymph # (Auto) 0.38 L Antelope # (Auto) 0.01 L Eos # (Auto) 0.00 Baso # (Auto) 0.01 Immature Gran # (Auto) 0.03 H Sodium 140 Potassium 3.9 Chloride 106 Carbon Dioxide 27 Anion Gap 7 BUN 17 Creatinine 0.69 Est Cr Clr Drug Dosing 93.2 Est GFR ( Amer) 108.9 Est GFR (Non-Af Amer) 94.0 BUN/Creatinine Ratio 24.6 H Glucose 118 H Calcium 8.7 Total Bilirubin 0.6 AST 25 ALT 47 Alkaline Phosphatase 82 Total Protein 6.1 Albumin 3.7 Globulin 2.4 L Albumin/Globulin Ratio 1.5 Urine Color Yellow Urine Appearance Turbid A Urine pH 5.0 Ur Specific [place] 1.020 Urine Protein 2+ H Urine Glucose (UA) Negative Urine Ketones Trace H Urine Blood 3+ H Urine Nitrite Positive A Urine Bilirubin Negative Urine Urobilinogen Negative Ur Leukocyte Esterase 3+ H Urine WBC (Auto) >30 H Urine RBC (Auto) 5-10 H U Hyaline Cast (Auto) 1-5 U Epithel Cells (Auto) >30 H Urine Bacteria (Auto) 4+ H Urine Yeast Not Reportable SARS-CoV-2, RNA, NAAT 08/06/21 06:07 WBC RBC Hgb Hct MCV MCH MCHC RDW Std Deviation RDW Coeff of Sachi Plt Count MPV Immature Gran % (Auto) Neut % (Auto) Lymph % (Auto) Antelope % (Auto) Eos % (Auto) Baso % (Auto) Neut # (Auto) Lymph # (Auto) Antelope # (Auto) Eos # (Auto) Baso # (Auto) Immature Gran # (Auto) Sodium Potassium Chloride Carbon Dioxide Anion Gap BUN Creatinine Est Cr Clr Drug Dosing Est GFR ( Amer) Est GFR (Non-Af Amer) BUN/Creatinine Ratio Glucose Calcium Total Bilirubin AST ALT Alkaline Phosphatase Total Protein Albumin Globulin Albumin/Globulin Ratio Urine Color Urine Appearance Urine pH Ur Specific West Urine Protein Urine Glucose (UA) Urine Ketones Urine Blood Urine Nitrite Urine Bilirubin Urine Urobilinogen Ur Leukocyte Esterase Urine WBC (Auto) Urine RBC (Auto) U Hyaline Cast (Auto) U Epithel Cells (Auto) Urine Bacteria (Auto) Urine Yeast SARS-CoV-2, RNA, NAAT NEGATIVE
--- NOTE | 2021-08-06 11:22 | Anesthesiology Consultation ---
Date of Service August 06, 2021 Assessment & Plan (1) Encounter for pre-operative examination: Chart Review Chart Review: Acceptable Risk for Surgery and Patient NOT seen in Pre Admission Testing Consults Requested none History Surgery Operation Date: 08/06/21 12:10 Proposed Procedures p Cystoscopy Left Retrograde Pyelogram, Left Stent Insertion - Yinka Adam MD Height/Weight Height: 5 ft 7 in Weight: 80 kg Allergies Allergy/AdvReac Type Severity Reaction Status Date / Time amoxicillin Allergy Intermediate Rash Verified 08/06/21 10:18 Penicillins Allergy Intermediate HIVES/RASH Verified 08/06/21 10:18 Medications Home Medications Medication Instructions Recorded Confirmed Last Taken valacyclovir 1 gram tablet 1,000 mg PO DAILY 90 Days #90 tab 09/17/20 08/06/21 Unknown estradiol (Estring) 1 vag ring VAGINAL Q90D #1 ea 10/30/20 08/06/21 Unknown clonazepam 0.5 mg tablet 0.5 mg PO HS #30 tab 06/01/21 08/06/21 Unknown prednisone 50 mg tablet 50 mg PO DAILY #5 tab 08/02/21 08/06/21 Unknown naproxen 500 mg tablet 500 mg PO BID PRN #14 tab 08/06/21 Unknown oxycodone-acetaminophen 5 mg-325 1 tab PO Q8H PRN #14 tab 08/06/21 Unknown mg tablet (Percocet) sulfamethoxazole 800 1 tab PO BID 7 Days #14 tab 08/06/21 Unknown mg-trimethoprim 160 mg tablet (Bactrim DS) tamsulosin 0.4 mg capsule (Flomax) 0.4 mg PO DAILY #14 cap 08/06/21 Unknown tramadol 50 mg tablet 50 - 100 mg PO Q6H PRN 08/06/21 08/06/21 Unknown Active Medications Generic Name Dose Route Start Last Admin Trade Name Freq PRN Reason Stop Dose Admin Ondansetron HCl 4 mg 08/06/21 07:14 08/06/21 09:22 Ondansetron Inj 2 Mg/Ml 2 Ml Vial IV 09/05/21 07:13 4 mg Q6H PRN Administration Nausea Valacyclovir HCl 1,000 mg 08/06/21 09:00 08/06/21 09:15 Valacyclovir Hcl 500 Mg Tablet PO 09/05/21 08:59 1,000 mg DAILY GIANA Administration NPO Date Last Intake of Fluids: 08/06/21 Last Intake of Fluids Comment: few ice chips this am only- vomited x2 this am Date Last Intake of Solids: 08/05/21 Time Last Intake of Solids: 17:30 Past Medical History Medical History Dyspareunia Herpes, genital Vaginal dryness Vertigo Past Family History Family History Aunt Breast cancer Mother Diabetes Grandmother Diabetes Myocardial infarction Grandfather Myocardial infarction Uncle Prostate cancer Denies family history of Ovarian cancer Past Surgical History Surgical History Gastric bypass status for obesity H/O tubal ligation Hx of tonsillectomy Social History Smoking Status: Never smoker Hx Alcohol Use: Yes Hx Substance Use: No Physical Exam Vital Signs Last Vital Signs Temp 37.9 C H 08/06/21 09:58 Pulse 110 H 08/06/21 09:58 Resp 18 08/06/21 09:58 BP 123/57 L 08/06/21 09:58 Pulse Ox 93 08/06/21 09:58 Testing Laboratory Results 08/06/21 00:26 08/06/21 00:26 Urine Color Yellow 08/06/21 03:40 Urine Appearance Turbid (Clear) A 08/06/21 03:40 Urine pH 5.0 (4.5-7.5) 08/06/21 03:40 Ur Specific [place] 1.020 (1.000-1.030) 08/06/21 03:40 Urine Protein 2+ (Negative) H 08/06/21 03:40 Urine Glucose (UA) Negative (Negative) 08/06/21 03:40 Urine Ketones Trace (Negative) H 08/06/21 03:40 Urine Nitrite Positive (Negative) A 08/06/21 03:40 Ur Leukocyte Esterase 3+ (Negative) H 08/06/21 03:40 Urine WBC (Auto) >30 /hpf (0-5) H 08/06/21 03:40 Urine RBC (Auto) 5-10 /hpf (0-4) H 08/06/21 03:40 U Hyaline Cast (Auto) 1-5 /lpf (0-5) 08/06/21 03:40 U Epithel Cells (Auto) >30 /lpf (0-5) H 08/06/21 03:40 Urine Bacteria (Auto) 4+ (Negative) H 08/06/21 03:40 Electrocardiogram Date: 08/06/21 Findings: + NSST changes and + ST @ (118) Other Testing ABDOMEN AND PELVIS CT WITHOUT CONTRAST CT DOSE: 513.96 mGy.cm HISTORY: Low back pain. Urinary tract infection. eval for kidney stone TECHNIQUE: Multiaxial CT images of the abdomen and pelvis were performed without contrast. A dose lowering technique was utilized adhering to the principles of ALARA. COMPARISON STUDY: None. FINDINGS: Mild dependent changes seen at the lung bases. No pneumoperitoneum. No pneumatosis. Nondisplaced transverse fracture through the S4 vertebral body. There is mild presacral edema at this location. A 1 cm sclerotic focus within the right acetabulum favors a bone island. No fractures within the lumbar spine. Postoperative changes consistent with prior Constantin-en-Y gastric bypass. Moderate left perinephric edema/fat stranding with mild left hydronephrosis. This is secondary to an obstructing 2.2 x 1.3 cm stone within the left renal pelvis/ ureteropelvic junction. There is associated urothelial thickening within the left renal pelvis and proximal left ureter. Edema surrounding the pancreatic tail and left adrenal gland is likely secondary to the perinephric edema. No additional renal stones identified. No right-sided hydronephrosis. The unenhanced liver and spleen are unremarkable. Normal right adrenal gland. No retroperitoneal lymphadenopathy. Normal caliber abdominal aorta. No pelvic free fluid. The bladder, uterus, and adnexa are unremarkable. A pessary device is noted within the vagina. Suboptimal evaluation for bowel pathology due to the lack of intravenous and oral contrast. However, there is no definite bowel wall thickening or obstruction. Colonic diverticulosis. No evidence for acute diverticulitis. Prior cholecystectomy. IMPRESSION: 1. A 2.2 x 1.3 cm obstructing stone within the left renal pelvis/ureteropelvic j unction resulting in mild hydronephrosis. 2. There is urothelial thickening within the left renal pelvis and proximal left ureter as well as moderate left perinephric edema/fat stranding. This is likely reactive to the obstruction. A superimposed infection could also have a similar appearance. Recommend correlation with urinalysis. 3. Acute nondisplaced transverse fracture through the S4 vertebral body. 4. Colonic diverticulosis. No evidence for acute diverticulitis. 5. Postoperative changes as described above. ACT 112: Negative or not required by law. Electronically signed by: Murali Bryan M.D. 08/06/2021 7:32 AM Dictated:08/06/21722 Transcribed: 08/06/21722
[2021-08-06] MEDS ORDERED: fentaNYL citrate 100 MCG/2 ML VIAL IV PRN (11:23)
[2021-08-06] MEDS ORDERED: ePHEDrine sulfate 50 MG/ML AMP IV PRN (11:23)
[2021-08-06] MEDS ORDERED: LABETALOL HCL IV 5 MG/ML 20ML IV PRN (11:23)
[2021-08-06] MEDS ORDERED: PHENYLEPHRINE 100MCG/ML 5ML SYR IV PRN (11:23)
[2021-08-06] MEDS ORDERED: ATROPINE SULFATE 0.1 MG/ML 10ML SYR IV PRN (11:23)
[2021-08-06] MEDS ORDERED: HYDROmorphone INJ 1 MG/ML SYRINGE IV PRN (11:23)
[2021-08-06] MEDS ORDERED: MIDAZOLAM HCL 1 MG/ML 2ML VIAL ONE (11:35)
[2021-08-06] MEDS ORDERED: LIDOCAINE 2% 2 ML VIAL/AMP(20MG/ML) INFIL ONE (11:35)
[2021-08-06] MEDS ORDERED: PROPOFOL IV EMULSION 10 MG/ML 20 ML VIAL IV ONE (11:35)
[2021-08-06] MEDS ORDERED: fentaNYL citrate 100 MCG/2 ML VIAL ONE (11:35)
--- NOTE | 2021-08-06 13:12 | Post Operative Brief Note ---
PG Immediate Post Op with CF Date of Surgery August 06, 2021 Pre & Post Diagnosis Left urolithiasis Operation Date: 08/06/21 12:10 <No data on this case meets the specified criteria> I identified the patient and participated in the time-out.: Yes Procedure Cystoscopy, left retrograde pyelogram with radiographic interpretation, left ureteral stent placement, Olsen catheter placement Operation Date: 08/06/21 12:10 <No data on this case meets the specified criteria> Cystoscopy, left retrograde pyelogram with radiographic interpretation, left ureteral stent placement, Olsen catheter placement Surgeon Yinka Adam MD Metal Off Bearer None Estimated Blood Loss 0 Findings See Below Stent in good position. Purulent urine from the left ureteral orifice. Specimens Specimen Description: None per surgeon Drains Olsen Catheter (16 Serbian Olsen catheter with 10 cc in balloon) and Other (6 x 26 left ureteral stent) Complications None Disposition Accompanied Patient To Recovery: No Disposition: Recovery Room
[2021-08-06] MEDS ORDERED: ONDANSETRON INJ 2 MG/ML 2 ML VIAL ONE (13:15)
[2021-08-06] MEDS ORDERED: KETOROLAC 30 MG/ML VIAL ONE (13:15)
[2021-08-06] MEDS ORDERED: DIATRIZOATE MEGLUMINE 30% 100ML VIAL INSTIL ONE (13:16)
--- NOTE | 2021-08-06 13:25 | Operative Report ---
PG Post Operative Report Pre & Post Diagnosis Operation Date: 08/06/21 12:10 Pre-Op Diagnosis: Left ureteral stone Post-Op Diagnosis: Left ureteral stone I identified the patient and participated in the time-out.: Yes Procedure Operation Date: 08/06/21 12:10 Actual Procedures p Cystoscopy Left Retrograde Pyelogram with radiographic interpretation, Left St ent Insertion, Olsen Catheter Placement(Left) - Yinka Adam MD Surgeon Yinka Adam MD Student None Estimated Blood Loss 0 Findings See Below 1. Normal urethra and bladder. 2. Left retrograde pyelogram showed mild hydronephrosis and filling defect corresponding with stone. Stent in appropriate position. 3. Mild purulent discharge from left ureteral orifice so opted to leave a Olsen catheter. Specimens None Drains 6 Thai by 26 cm left ureteral stent 16 Thai Olsen with 10 cc in balloon Anesthesia Type MAC Complications None Disposition Accompanied Patient To Recovery: No Disposition: Recovery Room Indications 61-year-old female with a large left UPJ stone and concern for infection. Risks and benefits were discussed and we will move forward with left ureteral stent placement. Description of Procedure After informed consent was obtained, the patient was transported operative welch ite. MAC anesthesia was induced. The patient was placed in dorsal lithotomy position prepped and draped in a sterile fashion. They received preoperative ciprofloxacin for antibiotic prophylaxis. An appropriate surgical timeout was performed. A 22 Thai rigid scope was inserted per urethra into the bladder. Small cystoscopy revealed no stones or lesions. I turned my attention the left ureteral orifice and intubated this with a 5 Thai open-ended catheter. A left retrograde pyelogram was shot which showed mild left hydronephrosis and a filling defect corresponding with the stone on CT. A sensor wire was advanced into the kidney and confirmed fluoroscopically. A 6 Thai by 26 cm left ureteral stent was deployed with a good proximal coil in the renal pelvis and a good distal coil noted in the bladder. There was mild purulent output from the left ureteral orifice. These were confirmed fluoroscopically and under direct visualization, respectively. The bladder left full and the scope was removed. A 16 Thai Olsen catheter was inserted with return of urine. The balloon was inflated with 10 cc of sterile water. This concluded the end of the case. All counts were correct at the end of the case. I was present, scrubbed, and actively participated for the entire to the procedure. I attest to the content of the Intraoperative Record and any orders documented therein. Any exceptions are noted below.
--- NOTE | 2021-08-06 13:31 | Anesthesiology Progress Note ---
Date of Service August 06, 2021 Anesthesia Post Procedure Vital Signs Vital Signs: Temp Pulse Pulse Pulse Resp BP BP 08/06/21 13:23 36.4 C L 88 21 96/59 L 08/06/21 09:58 37.9 C H 110 H 18 123/57 L 08/06/21 07:18 84 16 08/06/21 06:00 96 H 19 105/62 08/06/21 05:30 89 18 08/06/21 05:00 90 16 107/59 L 08/06/21 04:30 92 H 17 08/06/21 04:00 94 H 19 102/55 L 08/06/21 03:30 99 H 18 08/06/21 03:00 101 H 14 101/56 L 08/06/21 02:30 101 H 20 08/06/21 02:00 105 H 19 114/69 08/06/21 01:38 107 H 21 08/06/21 01:11 109 H 22 08/06/21 00:28 37.8 C H 122 H 18 156/75 H BP Pulse Ox 08/06/21 13:23 92 08/06/21 09:58 93 08/06/21 07:18 112/56 L 98 08/06/21 06:00 08/06/21 05:30 08/06/21 05:00 08/06/21 04:30 08/06/21 04:00 08/06/21 03:30 08/06/21 03:00 08/06/21 02:30 08/06/21 02:00 08/06/21 01:38 08/06/21 01:11 94 08/06/21 00:28 96 Pain Intensity Back: Pain Intensity: 3 Transfer of Care Handoff Completed per policy Notes Mental Status: alert / awake / arousable Patient Amnestic to Procedure: Yes Nausea / Vomiting: adequately controlled Pain: adequately controlled Airway Patency, RR, SpO2: stable & adequate BP & HR: stable & adequate Hydration State: stable & adequate Anesthetic Complications: no major complications apparent and Pt Satisfied with anesthetic care Notes: The patient is awake and comfortable. Her vitals are stable.
--- NOTE | 2021-08-06 13:40 | Fluoroscopy Report ---
FL retrograde includes kub CLINICAL HISTORY: LT STENT COMPARISON STUDY: CT of the abdomen and pelvis performed earlier today. FLUOROSCOPY TIME: 7 seconds. FLUOROSCOPIC IMAGES: 5 FINDINGS: Fluoroscopy was provided during cystoscopy, left retrograde exam and left ureteral stent in sertion. Proximal aspect of stent projects over the left renal pelvis. IMPRESSION: Fluoroscopy provided during cystoscopy, left retrograde exam and left ureteral stent ins ertion. ACT 112: Negative or not required by law. Electronically signed by: Scooter Bah M.D. 08/06/2021 1:38 PM
[2021-08-06] MEDS ORDERED: NON-FORMULARY MEDICATION (Estradiol [Estring] 2 mg (7.5 mcg /24 hour) ring) PV SCH (14:49)
[2021-08-06] MEDS: LACTATED RINGER'S 1,000 ML IV SCH (15:09)
[2021-08-06] MEDS ORDERED: predniSONE 50 MG TAB PO ONE (16:30)
[2021-08-06] MEDS: CIPROFLOXACIN / D5W 400 MG/200 ML BAG IV SCH (16:51)
[2021-08-06] MEDS ORDERED: Nursing to Pharmacy Communication SCH (19:00)
[2021-08-06] MEDS ORDERED: clonazePAM 0.5 MG TAB PO SCH (21:00)
[2021-08-07] MEDS: CIPROFLOXACIN / D5W 400 MG/200 ML BAG IV SCH (03:49)
[2021-08-07] MEDS: LACTATED RINGER'S 1,000 ML IV SCH (06:00)
--- NOTE | 2021-08-07 06:39 | Electrocardiogram Report ---
Test Reason : Blood Pressure : / mmHG Vent. Rate : 118 BPM Atrial Rate : 118 BPM P-R Int : 144 ms QRS Dur : 072 ms QT Int : 310 ms P-R-T Axes : 052 048 066 degrees QTc Int : 434 ms Sinus tachycardia Nonspecific ST abnormality Abnormal ECG When compared with ECG of 27-JAN-2015 11:36, Vent. rate has increased BY [address] now depressed in Anterior leads Confirmed by Olvin Ceballos ([id number]) on 08/07/2021 6:39:17 AM Referred By: REFERRED SELF Confirmed By:Olvin Ceballos
[2021-08-07] MEDS: valACYclovir HCL 500 MG TABLET PO SCH (08:48)
--- NOTE | 2021-08-07 09:47 | Urology Progress Note ---
Date of Service August 07, 2021 Assessment & Plan (1) Hydronephrosis, left: (2) Left ureteral stone: Plan: Status post left ureteral stent placement for obstructing stone with hydronephrosis and urinary tract infection Culture is not showing definitive pathogen but her most recent positive culture was in August 2019 and was a pansensitive E. coli Based on this I think it is extremely reasonable to send her home on an extended course of Bactrim I provided 14 days of treatment, however I would only like her to treat for 3 to 5 days now and then reserve the remainder of the pills for as needed use as she is planning to travel to the [facility] later this week and I would like her to have antibiotics with her while she is traveling We will arrange for outpatient follow-up Plan for Olsen removal this morning I think she is safe for discharge home from urology standpoint Admission and Anticipated Discharge Date Admission Date: August 06, 2021 Subjective Considerably better today than she was yesterday No significant discomfort aside from some chronic lower back issues that she has been dealing with for several weeks Has a Olsen catheter in placeanxious to have it removed, voiding freely prior to surgery No fevers overnight Minimal flank pain Anxious to go home Physical Exam Physical Exam: Urine clear Constitutional: well developed and well nourished Respiratory: no respiratory distress Cardiovascular: Extremities: no pedal edema Gastrointestinal (Abdomen): Inspection/Auscultation: abdomen normal to inspection Results & Data ([facility]) Vital Signs (Past 12 Hours) Vital Signs Temp Pulse Resp BP BP Pulse Ox 08/07/21 07:22 36.6 C 80 18 123/77 97 08/07/21 03:10 36.6 C 68 18 129/76 97 08/06/21 22:34 36.8 C 69 16 114/76 95 PG Care Time/CCT Total # of Minutes Spent Total Time Spent with Patient: Total time spent is greater than 50% in coordination of care (as documented) at patient's floor/unit and/or counseling patient: Coding Level of Care Code 72157 Subseq Hosp Care Lvl 3 Diagnoses Hydronephrosis, left N13.30 Left ureteral stone N20.1
[2021-08-07 10:22] LABS: Eosinophils # (auto) 0.03 K/uL (0-0.5); Eosinophils % (auto) 0.2 %; Hematocrit (blood only) 39.3 % (37-47); Immature Granulocytes # (auto) 0.04 K/uL (0.00-0.02); Immature Granulocytes % (auto) 0.3 %; Lymphocytes # (auto) 0.93 K/uL (1.2-3.4); Lymphocytes % (auto) 6.7 %; Mean Corpuscular Hemoglobin 31.4 pg (25-34); Mean Corpuscular Hgb Conc 33.1 g/dL (32-36); Mean Corpuscular Volume 94.9 fL (80-100); Mean Platelet Volume 10.4 fL (7.4-10.4); Monocytes # (auto) 0.75 K/uL (0.11-0.59); Monocytes % (auto) 5.4 %; Neutrophils # (auto) 12.13 K/uL (1.4-6.5); Neutrophils % (auto) 87.4 %; Platelet Count 166 K/uL (130-400); RDW Coefficient of Variation 13.3 % (11.5-14.5); RDW Standard Deviation 46.5 fL (36.4-46.3); Red Blood Count 4.14 M/uL (4.2-5.4); White Blood Count 13.88 K/uL (4.8-10.8)
--- NOTE | 2021-08-07 10:53 | Discharge Summary ---
Date of Service August 07, 2021 Admission HPI Per Admitting Provider Aba Smalls is a 61yo female presenting with infected nephrolithiasis. Patient has been having severe back pain as well as rigors. She fell down the stairs appx 1 week ago while carrying a basket of laundry. She reports losing her footing - stocking feet on wooden stairs. She fell down 5 steps and struck her head and her lower back. She has been having significant back pain since. Was seen by her PCP 3 days ago and had x-rays taken which showed a sacral fracture. She was started on Prednisone. Has been developing intermittent nausea for the last several days with intermittent subjective fevers. Also had several episodes of rigors. She denies abdominal pain, vomiting, dysuria, frequency or urgency. CT of the lumbar spine revealed a 1.6 cm calculus in the left renal pelvis with mild hydronephrosis. UA is suggestive of infection Admission Exam Per Admitting Provider Physical Exam: General: patient resting comfortably, NAD, non-toxic in appearance, AA&O x 4 Skin: warm, dry, intact, no rashes or lesions HEENT: NC/AT, PERRL, EOMI, anicteric sclera, conjunctiva without injection, external ear normal to inspection and nontender, nares patent, moist mucus membranes, dentition intact, no oropharyngeal lesions, neck supple, trachea midline, no LAD, no thyromegaly, no JVD Heart: +S1/S2, regular, no m/r/g Lungs: equal air entry bilaterally, no rales/rhonchi/wheezes Abd: +BS, soft, NT/ND, no masses/organomegaly/ascites, left CVA tenderness Ext: warm, 2+ pulses in UE/LE bilaterally, no clubbing/cyanosis or edema Neuro: nonfocal, patient AA&O x 4, speech intact, no facial droop, moving all extremities on command with equal strength 5/5 Principal Diagnosis nephrolithiasis Discharge Exam Constitutional well developed and well nourished; no acute distress Eyes PERRL, conjunctivae normal, anicteric sclerae ENMT external ear and nose normal, oropharynx normal Neck normal visual inspection Respiratory normal respiratory effort, lungs clear to auscultation Cardiovascular RRR, no murmur, no edema Gastrointestinal (Abdomen) normal bowel sounds, soft, nontender, no hepatosplenomegaly Musculoskeletal no cyanosis or clubbing, extremities motor strength 5/5 Skin no rashes, warm and dry Neurologic no focal motor deficits Psychiatric A+Ox3, euthymic affect Discharge Data Allergies Allergy/AdvReac Type Severity Reaction Status Date / Time amoxicillin Allergy Intermediate Rash Verified 08/06/21 10:18 Penicillins Allergy Intermediate HIVES/RASH Verified 08/06/21 10:18 Consultations 08/06/21 04:50 ED Decision to Admit Stat 08/06/21 04:51 Consult Urology Stat 08/06/21 05:19 Consult Urology Routine Procedures Performed Operation Date: 08/06/21 12:10 Actual Procedures p Cystoscopy Left Retrograde Pyelogram, Olsen Catheter Placement, Left Stent Insertion(Left) - Yinka Adam MD Ordered Studies 08/06/21 [place] retrograde includes kub Routine 08/06/21 00:34 CT head/brain wo con Urgent CT lumbar spine wo con Urgent 08/06/21 06:53 CT abd pelvis wo con Urgent Hospital Course (1) Left ureteral stone: 61 year old female with a history of fibromyalgia, restless leg syndrome, and who presented to the ED for headache, chills, and back pain found to have a 2.2 by 1.3 cm kidney stone on CT s/p left ureteral stent. Obstruction Uropathy sec to Nephrolithiasis - CT A/P - 2.2 by 1.3 cm stone is left renal pelvis/ureteropelvic junction resulting in mild hydronephrosis - left ureteral stent placed 08/06/21 - Urology will schedule outpatient follow up Urinary tract infection, likely secondary to kidney stone - denies urinary symptoms - UA: 2+ protein, 3+ blood, nitrite positive, 3+ leukocyte esterase, 4+ bacteria - On IV Cipro while hospitalized - discharged on 3 days of oral Bactrim, with longer course available if needed - will need to follow up urine and blood cx. currently pending - prior urine culture from August 2019 grew parsons sensitive E. coli - given return precautions if fevers or abdominal pain to call or come in for further evaluation Fall w/ headache - hit back of head on staircase over one week prior - CT head showed no acute intracranial changes - Tylenol for pain control Back pain - CT A/P showed S4 transverse fracture - Tylenol for pain control Restless leg syndrome - continue home clonazepam (2) Hydronephrosis, left: (3) Nephrolithiasis: (4) Headache: (5) UTI (urinary tract infection): (6) Back pain: (7) Fall: (8) Routine gynecological examination: (9) UTI (urinary tract infection): (10) Routine health maintenance: (11) Abnormal blood sugar: (12) HSV infection: (13) Vitamin B12 deficiency: (14) RLS (restless legs syndrome): Total Time Total Time Spent Total Time Spent (In Minutes): see attending attestation Discharge Plan Discharge Items Patient Disposition: Home - Self-Care Reason For Visit: NEPHROLITHIASIS, UTI Discharge Diagnosis: nephrolithiasis, UTI Condition on Discharge: Good Activity: Resume your previous activity Lifting: Gradually increase as tolerated Bathing: No limitations Sexual Activity: When tolerated Exercise/Sports: Gradually increase as tolerated Driving/Machine Use: Resume 1 day after discharge Non-emergency contact: Urologist Call non-emergency contact if: you have any medication questions, your pain is worsening, you have a fever and your temperature is above 101.5 Follow-up/Referrals: Birgit Chan MD [Primary Care Provider] - Diet: Regular Addtl Attending Provider Instructions: Please take all medications as prescribed and keep all follow-ups as scheduled. Please call our office at [phone] with any questions, concerns or need to reschedule appointments for any reason. We are happy to assist you. While you have a ureteral stent in place: Some discomfort is normal. Certain movements may trigger pain or a feeling that you need to urinate. You may also feel mild soreness or pressure before or during urination. These symptoms should go away a few days after the stent is removed. Your urine may be slightly pink or red. This is due to bleeding caused by minor irritation from the stent. This may happen on and off while you have the stent, it is not harmful and is to be expected. Medication to help minimize discomfort or bladder spasms, or to prevent infection may be prescribed. Take this as directed. Drink plenty of fluids to help flush out your urinary tract. If you go home with a catheter, wash with soapy water and a fresh washcloth twice daily. We recommend mild bar soap such as Dial or Dove. How long will you need a stent? An appointment should already be made for you for stent removal, unless directed otherwise. The stent is often taken out after the blockage in the ureter is treated or the ureter has healed. This may take 1-2 weeks, or longer. If a stent is needed for a longer period of time, it may need to be exchanged every few months. Likely prior to your followup appointment you will be asked to get an X-ray, please complete this the night before or morning of your appointment. When to call [facility] at [phone]: Your urine contains heavy blood clots You are constantly leaking urine Fever of 101F or higher, chills, nausea, or vomiting Your pain is not relieved with medication The end of the stent comes out of your urethra Dr. Adam's office will contact you to arrange appropriate follow up Pending Studies at Discharge: No Studies:: urine culture blood culture Stand-Alone Forms: My [facility] Electronic Brailler, Opioid Pain Management, Smoking Cessation Medications and DC Order Prescriptions: New sulfamethoxazole-trimethoprim [Bactrim DS] 800-160 mg tablet 1 tab PO BID 7 Days Qty: 14 RF: 0 naproxen 500 mg tablet 500 mg PO BID PRN (Reason: pain) Qty: 14 RF: 0 oxycodone-acetaminophen [Percocet] 5-325 mg tablet 1 tab PO Q8H PRN (Reason: pain) Qty: 14 RF: 0 tamsulosin [Flomax] 0.4 mg capsule 0.4 mg PO DAILY Qty: 14 RF: 0 sulfamethoxazole-trimethoprim [Bactrim DS] 800-160 mg tablet 1 tab PO BID Qty: 28 RF: 0 Continued clonazepam 0.5 mg tablet 0.5 mg PO HS Qty: 30 RF: 5 prednisone 50 mg tablet 50 mg PO DAILY Qty: 5 RF: 0 valacyclovir 1 gram tablet 1,000 mg PO DAILY 90 Days Qty: 90 RF: 0 Estring 2 mg (7.5 mcg /24 hour) ring 1 vag ring vaginal Q90D Qty: 1 RF: 3 tramadol 50 mg tablet 50 - 100 mg PO Q6H PRN (Reason: pain) RF: 0 Discharge Orders: Discharge Order (Routine); Ordered 08/07/21 Ordered By: Daryn Gutiérrez/Other Patient Handouts: Anatomy of the Female Urinary Tract, Cystoscopy Admission Data Admit Date/Time: 08/06/21 05:19 Attending Provider: Selene Fernandes Admit Provider: Allison Lange Primary Care Provider: Birgit Chan Other Providers: Yinka Adam ; Allison Lange Other Interventions: Discharge Summary Assessment (RN) Last Done: 08/07/21 11:47 Supervising Physician Co-Signing Physician Notes Resident Physician Supervision Note: I independently interviewed and examined the patient and verified the may history and physical, reviewed labs and image studies and agree with resident Dr. Acevedo findings and care plan. Resident Activity Tracking Resident Involvement: Resident Care Provided Care Provided: Adult Hospital Medicine
[2021-08-07 11:09] LABS: BUN Creatinine Ratio 18.1 (10-20); Calcium 8.7 mg/dl (8.5-10.1); Creatinine Clr Calc Pharmacy 77.5 ml/min; Est GFR (African American) 88.2 ml/min; Est GFR (Non-African American) 76.1 ml/min; Potassium 3.6 mmol/L (3.5-5.1)
--- NOTE | 2021-08-08 14:17 | Communication Note ---
Date of Service: August 08, 2021 Patient was discharged on 08/07. We were notified that the patient had a positive blood culture 1 out of 2 blood cultures returned with Gram negative rods, unclear at this time if this represents pseudomonas. The patient was called and discussed the results with her and informed her to pickle solution maker Ciprofloxacin 500 mg BID for 7 days and to stop taking Bactrim. She should follow up with her PCP in the next week to address her hospitalization and evaluate how she is doing as well as follow up on the finalized cultures and sensitivities.
== END 2021-08-07 12:53 | disposition home or self-care (01) | DRG 660 ==
LOC: ED 00:21 → EDINP 05:19 → SUATTDRO 05:19 → EDINP 06:49 → 3N 14:48

== ENCOUNTER 2022-12-23 08:11 | Observation (INO) ==
--- NOTE | 2022-12-23 08:23 | Emergency Department Note ---
ED Provider Note NAME: SHARI KAPLAN AGE: 62 SEX: F : 1960 ARRIVES VIA: Walk-In INFORMANT: [Patient][, ] ED PROVIDER(S): [Enoch Rosales MD] CHIEF COMPLAINT: [] MEDICAL DECISION MAKING: [Note all interventions, Interpret results, Remember additional problems, list any social risk factors] Prior /Outside records reviewed: [none] Differential diagnosis: [] Diagnostics, as interpreted by me: ECG: [none] Cardiac monitoring: An order was placed for continuous cardiac monitoring. The monitor shows a rate of [] with [] rhythm. [Patient was placed on pulse oximetry] Medical decision rules: [none] Imaging studies: See below HPI: [] PAST MEDICAL HISTORY: [See Below] PAST SURGICAL HISTORY: [See Below] SOCIAL HISTORY: [See Below] HOME MEDICATIONS: [See Below] ALLERGIES: [See Below] VITALS: [See Below] PHYSICAL EXAMINATION: GENERAL: NAD, [wearing a mask,] non-toxic. EYE EXAM: Normal conjunctiva. PERRL, no anisocoria and EOM's grossly intact w/o pain. NECK: Supple, no nuchal rigidity, no adenopathy, non-tender. No signs of meningismus. FROM of the neck with good chin to chest and neck extension. No stridor. LUNGS: Clear to auscultation. Normal chest wall mechanics. HEART: NSR, no MRG. ABDOMEN: Abdomen soft, non-tender, no masses, no rebound or guarding. BACK: No CVA TTP. SKIN: No rashes and no bruising. UPPER EXTREMITIES: Upper extremities are grossly normal. LOWER EXTREMITIES: Grossly normal, no edema. NEURO EXAM: A&O x3, cranial nerves II-XII grossly intact, normal speech, moves all 4 extremities. Past Med/Surg History Medical History Dyspareunia Encounter for pre-operative examination Headache Herpes, genital Vaginal dryness Vertigo Surgical History Gastric bypass status for obesity H/O tubal ligation Hx of tonsillectomy Family History Aunt Breast cancer Mother Diabetes Grandmother Diabetes Myocardial infarction Grandfather Myocardial infarction Uncle Prostate cancer Denies family history of Ovarian cancer Social History Smoking Status: Never smoker Second Hand Exposure: No; Do You Dip or Chew Tobacco: No; Hx Alcohol Use: Yes Hx Substance Use: No Preferred Language: Kenyan Visual Impairment: No Limitations Scrap Worker Required: No Beliefs That Will Affect Care: None marital status: Current Living Situation: Spouse current occupational status: employed Feels Safe at Home: Yes caffeine: Yes (tea) Dental Care, Regularly: Yes Seatbelt Use: always Sunscreen Use: Yes Assistive Devices: None Allergies Allergies Allergy/AdvReac Type Severity Reaction Status Date / Time amoxicillin Allergy Intermediate Rash Verified 12/22/22 12:58 Penicillins Allergy Intermediate HIVES/RASH Verified 12/22/22 12:58 Home Meds Previous Rx's Medication Instructions Recorded clonazepam 0.5 mg tablet 0.5 mg PO HS Leg cramps #30 tabs 11/30/22 Results & Data (ED) Vital Signs Vital Signs - 24 hr 12/23/22 08:14 Temperature 36.4 C L Temperature Source Temporal Artery Scan Pulse Rate 105 H Respiratory Rate 14 Blood Pressure 122/79 Blood Pressure Mean 93 Pulse Oximetry 98 Oxygen Delivery Method Room Air Sepsis Recent Fever Within 48 Hours No Sepsis New/Unexplained Change in Mental Status No Sepsis Action Taken by Nursing No Action Required Home Medications Current Medication List: was personally reviewed by me Laboratory Data Attestation: I reviewed the patient's lab results. Discharge Plan Visit Data Chief Complaint: Abnormal Labs/Diagnostic Testing Stated Complaint: ABNORMAL BLOOD LABS,DOC REF ED Provider: Eric Gan Forms Stand Alone Forms: My [facility] Futon Prescriptions Prescriptions: No Action clonazepam 0.5 mg tablet 0.5 mg PO HS Qty: 30 3RF Rx Instructions: PDMP Searched, last filled on 07/06/22 for 30 days, okay to fill Referrals Referrals: Birgit Chan MD [Primary Care Provider] -
--- NOTE | 2022-12-23 08:56 | Emergency Department Note ---
Impression & Plan Anaplasmosis, Splenomegaly, Thrombocytopenia ED Provider Note NAME: SHARI KAPLAN AGE: 62 SEX: F : 1960 ARRIVES VIA: Walk-In INFORMANT: Patient, ED PROVIDER(S): Eric Gan DO CHIEF COMPLAINT: Fatigue HPI: The patient is a 62-year-old female who presented to the emergency department for an evaluation of multiple complaints. The patient has not been feeling well for approximately 2 weeks. She states that she has had generalized malaise and weakness. She had a lot of fatigue. She is normally a very active person. She was seen in our facility 3 days ago for redness on her foot as well as flank pain. Her work-up did not show anything specific but she was found to have thrombocytopenia a large spleen and a suspected insect bite on her foot. She was started on antibiotics by her family doctor she thinks it was Keflex. She states the redness is improving. She was called by her doctor today to come back to the emergency department for further laboratory studies because her platelet count continues to drop. She does not remember a tick bite. She has no sick contacts. ROS: See above HPI for pertinent positives & negatives. A total of 10 systems reviewed and were otherwise negative. PAST MEDICAL HISTORY: See Below PAST SURGICAL HISTORY: See Below FAMILY HISTORY: See Below SOCIAL HISTORY: See Below HOME MEDICATIONS: See Below ALLERGIES: See Below VITALS: See Below PHYSICAL EXAMINATION: GENERAL: Patient is awake alert in no acute distress patient is resting comfortably and showing no signs of anxiety EYES: The conjunctivae are clear. The pupils are round and reactive. EARS, NOSE, MOUTH AND THROAT: The nose is without any evidence of any deformity. NECK: The neck is nontender and supple. RESPIRATORY: Normal respiratory effort is noted there is no evidence of wheezing rhonchi or rales CARDIOVASCULAR: Regular rate and rhythm noted there no murmurs rubs or gallops normal S1 normal S2. GASTROINTESTINAL: The abdomen is soft. Abdomen is nontender. MUSCULOSKELETAL/EXTREMITIES: There is no evidence of gross deformity full range of motion is noted in the hips and shoulders. SKIN: There is no obvious evidence of any rash. There are no petechiae, pallor or cyanosis noted. NEUROLOGIC: Patient is awake alert and oriented x3 MEDICAL DECISION MAKING: The patient is a 62-year-old female who was sent to the emergency department by her primary care physician for an evaluation of thrombocytopenia and splenomegaly. The patient's been having generalized malaise over the last few weeks. She also had erythema on her left foot. This was felt to be secondary to an infected insect bite although it is more likely secondary to a tick bite. I discussed the patient's laboratory and radiographic studies with her today. She continues to have low white blood cell count as well as thrombocytopenia. There was concern for tickborne illness. For this reason further laboratory and radiographic studies were obtained. The patient was treated with IV fluids and IV antibiotics in the emergency department. She was reevaluated multiple times. Given her findings I did discuss her condition with the on-call [facility] hospitalist. She may benefit from inpatient management further. They have agreed to evaluate the patient in the emergency department for further management and disposition. Triage Nursing notes reviewed. Prior medical records reviewed Vital Signs: reviewed and remarkable for tachycardia and elevated blood pressure. Differential diagnosis: Infection, dehydration, metabolic abnormality, hypo/hyperglycemia, electrolyte disturbance, anemia, hypoxia, cardiac sources, intracerebral event, toxicologic, neurologic, as well as other pathologies. ER treatment provided: See below Diagnostics interpreted by me: ECG: EKG was obtained in the emergency department. My interpretation is sinus rhythm at 99 bpm. There is no ectopy. There is no acute ST segment abnormalities noted. This was compared to a tracing from February 25, 2022. No changes were noted. Cardiac Monitoring: An order was placed for continuous cardiac monitoring. The monitor shows a rate of 107 bpm with sinus tachycardia. Laboratory studies: As stated above and show below. Imaging studies: See below. Radiographic imaging was reviewed by myself Consultation(s): I discussed this case with Dr. Bocanegra who is on-call for the [facility] hospitalist group. Past Med/Surg History Medical History Dyspareunia Encounter for pre-operative examination Headache Herpes, genital Vaginal dryness Vertigo Surgical History Gastric bypass status for obesity H/O tubal ligation Hx of tonsillectomy Family History Aunt Breast cancer Mother Diabetes Grandmother Diabetes Myocardial infarction Grandfather Myocardial infarction Uncle Prostate cancer Denies family history of Ovarian cancer Social History Smoking Status: Never smoker Second Hand Exposure: No; Do You Dip or Chew Tobacco: No; Hx Alcohol Use: Yes Hx Substance Use: No Preferred Language: Kuwaiti Visual Impairment: No 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 Beliefs That Will Affect Care: None marital status: Current Living Situation: Spouse current occupational status: employed Feels Safe at Home: Yes caffeine: Yes (tea) Dental Care, Regularly: Yes Seatbelt Use: always Sunscreen Use: Yes Assistive Devices: None Allergies Allergies Allergy/AdvReac Type Severity Reaction Status Date / Time amoxicillin Allergy Intermediate Rash Verified 12/22/22 12:58 Penicillins Allergy Intermediate HIVES/RASH Verified 12/22/22 12:58 Home Meds Home Medications Medication Instructions Recorded Confirmed Centrum Silver Women 1 tab PO DAILY 12/23/22 12/23/22 Hair, Skin And Nails Gummies 2 ea PO DAILY 12/23/22 12/23/22 Vitamin D3 1 tab PO DAILY 12/23/22 12/23/22 acetaminophen 500 mg tablet 500 mg PO Q4H PRN Fever 12/23/22 12/23/22 calcium 1 tab PO DAILY 12/23/22 12/23/22 cephalexin 500 mg capsule 500 mg PO BID 12/23/22 12/23/22 magnesium 1 tab PO DAILY 12/23/22 12/23/22 Previous Rx's Medication Instructions Recorded clonazepam 0.5 mg tablet 0.5 mg PO HS Leg cramps #30 tabs 11/30/22 Results & Data (ED) Vital Signs Vital Signs - 24 hr 12/23/22 08:14 12/23/22 09:38 12/23/22 09:30 Temperature 36.4 C L Temperature Source Temporal Artery Scan Pulse Rate 105 H 107 H 101 H Pulse Rate from SpO2 Sensor 100 H Respiratory Rate 14 21 Blood Pressure 122/79 145/87 H Blood Pressure Mean 93 106 Pulse Oximetry 98 98 Oxygen Delivery Method Room Air Sepsis Recent Fever Within 48 Hours No Sepsis New/Unexplained Change in Mental Status No Sepsis Action Taken by Nursing No Action Required Home Medications Current Medication List: was personally reviewed by me Laboratory Data Attestation: I reviewed the patient's lab results. 12/23/22 08:47 12/23/22 08:47 Lab Results 12/23/22 12/23/22 12/23/22 Range/Units 08:47 08:47 08:47 WBC 1.98 L (4.8-10.8) K/ul RBC 3.99 L (4.20-5.40) M/uL Hgb 12.3 (12.0-16.0) g/dl Hct 35.6 L (37.0-47.0) % MCV 89.2 (80.0-100.0) fL MCH 30.8 (25.0-34.0) pg MCHC 34.6 (32.0-36.0) g/dL RDW Std Deviation 42.7 (36.4-46.3) fL RDW Coeff of Sachi 13.1 (11.5-14.5) % Plt Count 60 L (130-400) K/uL MPV 10.7 (9.4-12.4) fL Immature Gran % (Auto) 0.5 % Neut % (Auto) 68.2 % Lymph % (Auto) 24.7 % Rowan % (Auto) 6.1 % Eos % (Auto) 0.0 % Baso % (Auto) 0.5 % Neut # (Auto) 1.35 L (1.40-6.50) K/uL Lymph # (Auto) 0.49 L (1.2-3.4) K/uL Rowan # (Auto) 0.12 (0.11-0.59) K/uL Eos # (Auto) 0.00 (0-0.50) K/uL Baso # (Auto) 0.01 (0-0.2) K/uL Immature Gran # (Auto) 0.01 (0.01-0.20) K/uL ESR 26 (0-30) mm/hr PT 10.6 (9.0-12.0) Seconds INR 1.0 (0.9-1.1) APTT 32.1 H (21.0-31.0) Seconds PTT Ratio 1.1 Sodium (136-145) mmol/L Potassium (3.5-5.1) mmol/L Chloride (98-107) mmol/L Carbon Dioxide (21-32) mmol/L Anion Gap (3-11) BUN (6-23) mg/dl Creatinine (0.6-1.2) mg/dl Est Cr Clr Drug Dosing ml/min Est GFR ( Amer) ml/min Est GFR (Non-Af Amer) ml/min BUN/Creatinine Ratio (10-20) Glucose (70-99(Fasting)) mg/dl Lactate (0.4-2.0) mmol/L Calcium (8.6-10.3) mg/dl Total Bilirubin (0.2-1.0) mg/dl AST (13-39) U/L ALT (7-52) U/L Alkaline Phosphatase (34-104) U/L Troponin I High Sens (0-14) pg/ml C-Reactive Protein (0-0.5) mg/dl Total Protein (6.0-8.3) gm/dl Albumin (3.4-5.0) gm/dl Globulin (2.5-4.0) gm/dl Albumin/Globulin Ratio (0.9-2) Lipase (11-82) U/L Procalcitonin (0-0.5) ng/ml Urine Color Urine Appearance (Clear) Urine pH (4.5-7.5) Ur Specific [place] (1.000-1.030) Urine Protein (Negative) Urine Glucose (UA) (Negative) Urine Ketones (Negative) Urine Blood (Negative) Urine Nitrite (Negative) Urine Bilirubin (Negative) Urine Urobilinogen (Negative) Ur Leukocyte Esterase (Negative) Urine WBC (Auto) (0-5) /hpf Urine RBC (Auto) (0-4) /hpf U Hyaline Cast (Auto) (0-5) /lpf U Epithel Cells (Auto) (0-5) /lpf Urine Bacteria (Auto) (Negative) Anaplasma Smear See Comment A A. phagocytophilum DNA Anaplasma Comment Pos for Anaplasma Lyme Disease IgG Ab (Negative) Lyme Disease IgM Ab (Negative) SARS-CoV-2 (PCR) (Negative) Influenza Type A (PCR) (Neg) Influenza Type B (PCR) (Neg) RSV (RT-PCR) (Neg) 12/23/22 12/23/22 12/23/22 Range/Units 08:47 08:47 08:47 WBC (4.8-10.8) K/ul RBC (4.20-5.40) M/uL Hgb (12.0-16.0) g/dl Hct (37.0-47.0) % MCV (80.0-100.0) fL MCH (25.0-34.0) pg MCHC (32.0-36.0) g/dL RDW Std Deviation (36.4-46.3) fL RDW Coeff of Sachi (11.5-14.5) % Plt Count (130-400) K/uL MPV (9.4-12.4) fL Immature Gran % (Auto) % Neut % (Auto) % Lymph % (Auto) % Rowan % (Auto) % Eos % (Auto) % Baso % (Auto) % Neut # (Auto) (1.40-6.50) K/uL Lymph # (Auto) (1.2-3.4) K/uL Rowan # (Auto) (0.11-0.59) K/uL Eos # (Auto) (0-0.50) K/uL Baso # (Auto) (0-0.2) K/uL Immature Gran # (Auto) (0.01-0.20) K/uL ESR (0-30) mm/hr PT (9.0-12.0) Seconds INR (0.9-1.1) APTT (21.0-31.0) Seconds PTT Ratio Sodium 136 (136-145) mmol/L Potassium 3.7 (3.5-5.1) mmol/L Chloride 103 (98-107) mmol/L Carbon Dioxide 27 (21-32) mmol/L Anion Gap 6 (3-11) BUN 12 (6-23) mg/dl Creatinine 0.62 (0.6-1.2) mg/dl Est Cr Clr Drug Dosing 101.0 ml/min Est GFR ( Amer) 112.0 ml/min Est GFR (Non-Af Amer) 96.6 ml/min BUN/Creatinine Ratio 19.4 (10-20) Glucose 102 H (70-99(Fasting)) mg/dl Lactate 0.9 (0.4-2.0) mmol/L Calcium 8.7 (8.6-10.3) mg/dl Total Bilirubin 1.5 H (0.2-1.0) mg/dl AST 89 H (13-39) U/L ALT 68 H (7-52) U/L Alkaline Phosphatase 121 H (34-104) U/L Troponin I High Sens 3.3 (0-14) pg/ml C-Reactive Protein 6.56 H (0-0.5) mg/dl Total Protein 6.4 (6.0-8.3) gm/dl Albumin 3.5 (3.4-5.0) gm/dl Globulin 2.9 (2.5-4.0) gm/dl Albumin/Globulin Ratio 1.2 (0.9-2) Lipase 14 (11-82) U/L Procalcitonin 0.32 (0-0.5) ng/ml Urine Color Urine Appearance (Clear) Urine pH (4.5-7.5) Ur Specific [place] (1.000-1.030) Urine Protein (Negative) Urine Glucose (UA) (Negative) Urine Ketones (Negative) Urine Blood (Negative) Urine Nitrite (Negative) Urine Bilirubin (Negative) Urine Urobilinogen (Negative) Ur Leukocyte Esterase (Negative) Urine WBC (Auto) (0-5) /hpf Urine RBC (Auto) (0-4) /hpf U Hyaline Cast (Auto) (0-5) /lpf U Epithel Cells (Auto) (0-5) /lpf Urine Bacteria (Auto) (Negative) Anaplasma Smear A. phagocytophilum DNA Anaplasma Comment Lyme Disease IgG Ab Negative (Negative) Lyme Disease IgM Ab Positive A (Negative) SARS-CoV-2 (PCR) (Negative) Influenza Type A (PCR) (Neg) Influenza Type B (PCR) (Neg) RSV (RT-PCR) (Neg) 12/23/22 12/23/22 12/23/22 Range/Units 08:47 08:47 08:47 WBC (4.8-10.8) K/ul RBC (4.20-5.40) M/uL Hgb (12.0-16.0) g/dl Hct (37.0-47.0) % MCV (80.0-100.0) fL MCH (25.0-34.0) pg MCHC (32.0-36.0) g/dL RDW Std Deviation (36.4-46.3) fL RDW Coeff of Sachi (11.5-14.5) % Plt Count (130-400) K/uL MPV (9.4-12.4) fL Immature Gran % (Auto) % Neut % (Auto) % Lymph % (Auto) % Rowan % (Auto) % Eos % (Auto) % Baso % (Auto) % Neut # (Auto) (1.40-6.50) K/uL Lymph # (Auto) (1.2-3.4) K/uL Rowan # (Auto) (0.11-0.59) K/uL Eos # (Auto) (0-0.50) K/uL Baso # (Auto) (0-0.2) K/uL Immature Gran # (Auto) (0.01-0.20) K/uL ESR (0-30) mm/hr PT (9.0-12.0) Seconds INR (0.9-1.1) APTT (21.0-31.0) Seconds PTT Ratio Sodium (136-145) mmol/L Potassium (3.5-5.1) mmol/L Chloride (98-107) mmol/L Carbon Dioxide (21-32) mmol/L Anion Gap (3-11) BUN (6-23) mg/dl Creatinine (0.6-1.2) mg/dl Est Cr Clr Drug Dosing ml/min Est GFR ( Amer) ml/min Est GFR (Non-Af Amer) ml/min BUN/Creatinine Ratio (10-20) Glucose (70-99(Fasting)) mg/dl Lactate (0.4-2.0) mmol/L Calcium (8.6-10.3) mg/dl Total Bilirubin (0.2-1.0) mg/dl AST (13-39) U/L ALT (7-52) U/L Alkaline Phosphatase (34-104) U/L Troponin I High Sens (0-14) pg/ml C-Reactive Protein (0-0.5) mg/dl Total Protein (6.0-8.3) gm/dl Albumin (3.4-5.0) gm/dl Globulin (2.5-4.0) gm/dl Albumin/Globulin Ratio (0.9-2) Lipase (11-82) U/L Procalcitonin (0-0.5) ng/ml Urine Color Urine Appearance (Clear) Urine pH (4.5-7.5) Ur Specific [place] (1.000-1.030) Urine Protein (Negative) Urine Glucose (UA) (Negative) Urine Ketones (Negative) Urine Blood (Negative) Urine Nitrite (Negative) Urine Bilirubin (Negative) Urine Urobilinogen (Negative) Ur Leukocyte Esterase (Negative) Urine WBC (Auto) (0-5) /hpf Urine RBC (Auto) (0-4) /hpf U Hyaline Cast (Auto) (0-5) /lpf U Epithel Cells (Auto) (0-5) /lpf Urine Bacteria (Auto) (Negative) Anaplasma Smear Cancelled A. phagocytophilum DNA Cancelled Anaplasma Comment Lyme Disease IgG Ab (Negative) Lyme Disease IgM Ab (Negative) SARS-CoV-2 (PCR) NEGATIVE (Negative) Influenza Type A (PCR) Negative (Neg) Influenza Type B (PCR) Negative (Neg) RSV (RT-PCR) Negative (Neg) 12/23/22 Range/Units 09:04 WBC (4.8-10.8) K/ul RBC (4.20-5.40) M/uL Hgb (12.0-16.0) g/dl Hct (37.0-47.0) % MCV (80.0-100.0) fL MCH (25.0-34.0) pg MCHC (32.0-36.0) g/dL RDW Std Deviation (36.4-46.3) fL RDW Coeff of Sachi (11.5-14.5) % Plt Count (130-400) K/uL MPV (9.4-12.4) fL Immature Gran % (Auto) % Neut % (Auto) % Lymph % (Auto) % Rowan % (Auto) % Eos % (Auto) % Baso % (Auto) % Neut # (Auto) (1.40-6.50) K/uL Lymph # (Auto) (1.2-3.4) K/uL Rowan # (Auto) (0.11-0.59) K/uL Eos # (Auto) (0-0.50) K/uL Baso # (Auto) (0-0.2) K/uL Immature Gran # (Auto) (0.01-0.20) K/uL ESR (0-30) mm/hr PT (9.0-12.0) Seconds INR (0.9-1.1) APTT (21.0-31.0) Seconds PTT Ratio Sodium (136-145) mmol/L Potassium (3.5-5.1) mmol/L Chloride (98-107) mmol/L Carbon Dioxide (21-32) mmol/L Anion Gap (3-11) BUN (6-23) mg/dl Creatinine (0.6-1.2) mg/dl Est Cr Clr Drug Dosing ml/min Est GFR ( Amer) ml/min Est GFR (Non-Af Amer) ml/min BUN/Creatinine Ratio (10-20) Glucose (70-99(Fasting)) mg/dl Lactate (0.4-2.0) mmol/L Calcium (8.6-10.3) mg/dl Total Bilirubin (0.2-1.0) mg/dl AST (13-39) U/L ALT (7-52) U/L Alkaline Phosphatase (34-104) U/L Troponin I High Sens (0-14) pg/ml C-Reactive Protein (0-0.5) mg/dl Total Protein (6.0-8.3) gm/dl Albumin (3.4-5.0) gm/dl Globulin (2.5-4.0) gm/dl Albumin/Globulin Ratio (0.9-2) Lipase (11-82) U/L Procalcitonin (0-0.5) ng/ml Urine Color [place] Urine Appearance Clear (Clear) Urine pH 6.0 (4.5-7.5) Ur Specific [place] 1.020 (1.000-1.030) Urine Protein 1+ H (Negative) Urine Glucose (UA) Negative (Negative) Urine Ketones 1+ H (Negative) Urine Blood 3+ H (Negative) Urine Nitrite Negative (Negative) Urine Bilirubin 1+ H (Negative) Urine Urobilinogen Positive H (Negative) Ur Leukocyte Esterase Trace H (Negative) Urine WBC (Auto) 1-5 (0-5) /hpf Urine RBC (Auto) >30 H (0-4) /hpf U Hyaline Cast (Auto) 10-30 H (0-5) /lpf U Epithel Cells (Auto) >30 H (0-5) /lpf Urine Bacteria (Auto) Negative (Negative) Anaplasma Smear A. phagocytophilum DNA Anaplasma Comment Lyme Disease IgG Ab (Negative) Lyme Disease IgM Ab (Negative) SARS-CoV-2 (PCR) (Negative) Influenza Type A (PCR) (Neg) Influenza Type B (PCR) (Neg) RSV (RT-PCR) (Neg) Administered Medications Sodium Chloride (Nss 1000ml) 1,000 mls @ 999 mls/hr IV .[id number] ONE Stop: 12/23/22 11:43 Last Admin: 12/23/22 10:57 Dose: 999 mls/hr Documented By: JOSE C Discontinued Medications Acetaminophen (Acetaminophen 500 Mg Tab) 1,000 mg PO NOW STA Stop: 12/23/22 10:26 Last Admin: 12/23/22 10:33 Dose: 1,000 mg Documented By: HOWARD Doxycycline Hyclate (Doxycycline Hyclate 100 Mg Cap) 100 mg PO NOW STA Stop: 12/23/22 10:44 Last Admin: 12/23/22 10:57 Dose: 100 mg Documented By: JOSE C Ceftriaxone Sodium (Rocephin) 2,000 mg in 70 mls @ 140 mls/hr IV NOW STA Stop: 12/23/22 11:12 Last Admin: 12/23/22 10:58 Dose: 140 mls/hr Documented By: JOSE C Imaging Data Attestation: I personally reviewed and interpreted this imaging study as follows: My Impression: 1 view chest x-ray was obtained in the emergency department. My interpretation is no free air or definite infiltrate, final report below. Radiologist's Impression: Chest X-Ray 12/23/22 08:25 XR chest 1V portable CLINICAL HISTORY: Fever TECHNIQUE: Single frontal radiograph of the chest was obtained. Comparison: Comparison is made to chest radiograph 12/12/2008 FINDINGS: No lines and tubes are seen. The cardiomediastinal silhouette is normal. The lungs are clear. No evidence of pleural effusion or pneumothorax. IMPRESSION: No acute abnormalities and in particular no radiographic evidence of pneumonia. ACT 112: Negative or not required by law. Electronically signed by: Kehinde Norton M.D. 12/23/2022 9:06 AM Discharge Plan Visit Data Chief Complaint: Abnormal Labs/Diagnostic Testing Stated Complaint: ABNORMAL BLOOD LABS,DOC REF ED Provider: Eric Gan Discharge Problem: Anaplasmosis, Splenomegaly, Thrombocytopenia Patient Disposition: Being Evaluated by Hospitalist Forms Stand Alone Forms: My [facility] Prescriptions Prescriptions: No Action clonazepam 0.5 mg tablet 0.5 mg PO HS Qty: 30 3RF Rx Instructions: PDMP Searched, last filled on 07/06/22 for 30 days, okay to fill acetaminophen 500 mg Tablet 500 mg PO Q4H PRN (Reason: Fever) cephalexin 500 mg capsule 500 mg PO BID Rx Instructions: Patient stated she has 4 capsules left as of today 12/23/2022 ( she still has today and tomorrow's dose) Centrum Silver Women 1 tab PO DAILY Hair, Skin And Nails Gummies 2 ea PO DAILY Rx Instructions: patient unsure of strength Vitamin D3 1 tab PO DAILY Rx Instructions: patient unsure of strength calcium 1 tab PO DAILY Rx Instructions: patient unsure of strength magnesium 1 tab PO DAILY Rx Instructions: patient unsure of strength Referrals Referrals: Birgit Chan MD [Primary Care Provider] -
--- NOTE | 2022-12-23 09:08 | XRay Report ---
XR chest 1V portable CLINICAL HISTORY: Fever TECHNIQUE: Single frontal radiograph of the chest was obtained. Comparison: Comparison is made to chest radiograph 12/12/2008 FINDINGS: No lines and tubes are seen. The cardiomediastinal silhouette is normal. The lungs are clear. No evid ence of pleural effusion or pneumothorax. IMPRESSION: No acute abnormalities and in particular no radiographic evidence of pneumonia. ACT 112: Negative or not required by law. Electronically signed by: Kehinde Norton M.D. 12/23/2022 9:06 AM
[2022-12-23 09:35] LABS: Appearance Urine Clear (Clear); Bacteria Urine Automated Negative (Negative); Blood Urine 3+ (Negative); Color Urine Orange; Epithelial Cell Urine Auto >30 /lpf (0-5); Glucose Urine UA Negative (Negative); Ketones Urine 1+ (Negative); Leukocyte Esterase Urine Trace (Negative); Nitrite Urine Negative (Negative); Protein Urine 1+ (Negative); RBC Urine Automated >30 /hpf (0-4); Urobilinogen Urine Positive (Negative)
[2022-12-23 09:36] LABS: Albumin Globulin Ratio 1.2 (0.9-2); Albumin Level 3.5 gm/dl (3.4-5.0); BUN Creatinine Ratio 19.4 (10-20); Bilirubin,Total 1.5 mg/dl (0.2-1.0); C Reactive Protein 6.56 mg/dl (0-0.5); Calcium 8.7 mg/dl (8.6-10.3); Est GFR (Non-African American) 96.6 ml/min; Globulin 2.9 gm/dl (2.5-4.0); Potassium 3.7 mmol/L (3.5-5.1); Total Protein 6.4 gm/dl (6.0-8.3)
[2022-12-23 09:39] LABS: Hematocrit (blood only) 35.6 % (37.0-47.0); Hemoglobin 12.3 g/dl (12.0-16.0); Mean Corpuscular Hemoglobin 30.8 pg (25.0-34.0); Mean Corpuscular Hgb Conc 34.6 g/dL (32.0-36.0); Mean Corpuscular Volume 89.2 fL (80.0-100.0); Mean Platelet Volume 10.7 fL (9.4-12.4); Platelet Count 60 K/uL (130-400); RDW Coefficient of Variation 13.1 % (11.5-14.5); RDW Standard Deviation 42.7 fL (36.4-46.3); Red Blood Count 3.99 M/uL (4.20-5.40); White Blood Count 1.98 K/ul (4.8-10.8)
[2022-12-23 09:41] LABS: Troponin I High Sensitivity 3.3 pg/ml (0-14)
[2022-12-23 09:50] LABS: Partial Thromboplastin Ratio 1.1; Partial Thromboplastin Time 32.1 Seconds (21.0-31.0); Prothrombin Time 10.6 Seconds (9.0-12.0)
[2022-12-23 09:52] LABS: Bilirubin Urine 1+ (Negative)
[2022-12-23 09:54] LABS: Influenza A virus by PCR Negative (Neg); Influenza B virus by PCR Negative (Neg); RSV by PCR Negative (Neg); SARS CoV2 RNA(COVID-19) Ceph NEGATIVE (Negative)
[2022-12-23 10:11] LABS: Procalcitonin 0.32 ng/ml (0-0.5)
[2022-12-23 10:19] LABS: Lyme Ab IgG w/WB Rflx Negative (Negative)
[2022-12-23 10:21] LABS: Lyme Ab IgM w/WB Rflx Positive (Negative)
[2022-12-23 10:22] LABS: Basophils # (auto) 0.01 K/uL (0-0.2); Basophils % (auto) 0.5 %; Immature Granulocytes # (auto) 0.01 K/uL (0.01-0.20); Immature Granulocytes % (auto) 0.5 %; Lymphocytes # (auto) 0.49 K/uL (1.2-3.4); Lymphocytes % (auto) 24.7 %; Monocytes # (auto) 0.12 K/uL (0.11-0.59); Monocytes % (auto) 6.1 %; Neutrophils # (auto) 1.35 K/uL (1.40-6.50); Neutrophils % (auto) 68.2 %
[2022-12-23 10:23] LABS: Anaplasmosis Smear(Rpt to DOH) Pos for Anaplasma
[2022-12-23] MEDS ORDERED: ACETAMINOPHEN 500 MG TAB PO STA (10:25)
[2022-12-23] MEDS ORDERED: SODIUM CHLORIDE 0.9% 1000ML 1,000 ML IV ONE (10:43)
[2022-12-23] MEDS ORDERED: cefTRIAXone SODIUM 2,000 MG/70 ML BAG IV STA (10:43)
[2022-12-23] MEDS ORDERED: DOXYCYCLINE HYCLATE 100 MG CAP PO STA (10:43)
--- NOTE | 2022-12-23 11:09 | History & Physical Report ---
Date of Service December 23, 2022 Assessment & Plan (1) Anaplasmosis: Plan: -Admit to med/tele -Currently with mild sinus tachycardia in the low 100's but otherwise stable -Noted to be anaplasma and Lyme IgM positive today -Both anaplasma and lyme account for her symptoms of fever, generalized weakness, body aches, rash of the left foot, thrombocytopenia, leukopenia, transaminitis, and splenomegaly -No significant abd pain/discomfort today -S/P a dose of doxycycline and 1L NSS in the ED, holding ceftriaxone and continuing with BID doxy as it will cover both -No symptoms or physial exam findings concerning for meningitis at this time -Blood cultures obtained, continue to monitor -Monitor daily CBC with diff, CMP, mag, PT/INR -Peripheral smear in process -BL SCD's for DVT PPX -Heart Healthy diet (2) Lyme disease: Plan: -See anaplasmosis (3) Elevated LFTs: Plan: -AST and ALT mildly elevated today, total bili of 1.5 -Likely due to her tick borne diseases -Has been taking tylenol frequently over the past week, will obtain acetaminophen level on admission -Will hold off on additional abdominal imaging at this time as she is without abdominal pain or significant discomfort -Would avoid acetaminophen for pain/fever at this time her LFT's begin to improve and acetaminophen level is back (4) Thrombocytopenia: Plan: -Platelets at 60 today, no sing of active bleeding -Most likely from tick borne illnesses -Hold anticoagulation and monitor for signs of bleeding -Daily (5) Splenomegaly: Plan: -Noted on CT of the abd/pelvis on 12/20 -No abd discomfort at this time -would get additional imaging if she developed abdominal pain (6) Leukopenia: Plan: -Noted to be 1.98 today, slightly increased compared to yesterday -Likely due to her acute lyme and anaplasma infections -No current fever -Hgb stable -Continue to monitor daily WBC (7) Anxiety: Plan: -Continue HS clonazepam Plan The patient was discussed with Dr. Bocanegra at the time of the admission History of Present Illness Chief Complaint: Generalized weakness, sent by PCP for worsening thrombocytopenia Primary Care Provider: Birgit Chan MD Aba is a 62 year old female with a PMH significant for genital herpes and anxiety who presented to the [facility] on 12/23 at the recommendation of her PCP for progressive thrombocytopenia and generalized weakness. In the ED the patient was noted to be tachycardic in the low 100's but otherwise stable. Labs were significant for a leukopenia of 1.98 (up from 1.88 yesterday), stable Hgb of 12, platelet count of 60 (down from 77 yesterday), neutrophil count of 1.35, lymphocyte count of 0.49), Total bili of 1.5, AST of 89, ALT of 68, CRP of 6.56, UA positive for 1+ protein, 1+ ketones, 3+ blood, positive urobilinogen, trace leukocyte esterase, and > 30 epithelial cells, Lyme IgM and Anaplasma positive. Chest xray was read as "No acute abnormalities and in particular no radiographic evidence of pneumonia.". Prior to admission the patient was given 1gm IV Acetaminophen, a dose of PO Doxycycline, and ordered 2gm Ceftriaxone and 1L NSS. AT the time of the exam the patient was sitting in bed in no acute distress with her sitting bedside. She states that she first started to developed generalized weakness/fatigue approximately 2 weeks ago. She is typically a very active person but was too fatigued to do normal house/yard work. Approximately 9 days ago she noticed swelling and what appeared to be a bug bite on the dorsal aspect of her left foot. She thought that she was bitten by ants while outside working. She called a helping associated with her insurance on 12/18 and was prescribed a 7 day course of Keflex for possible cellulitis of the left foot. She was having ongoing fevers, chills, generalized body aches with headaches and some cervical neck pain. Because of ongoing symptoms she presented to the [facility] ED on 12/20. She was told that she had some splenomegaly with decreased WBC and platelet counts, thought to be caused by a viral illness. They discharged her home with plans for close PCP follow up. Her PCP ran follow up labs finding progressive leukopenia and thrombocytopenia and recommended she come back to the ED for further evaluation. When asked, she says she has some upper abdominal fullness/bloating but denies any actual abdominal pain. She has been taking 500 mg PO tylenol approximately 4-6 times daily for the past week for her symptoms. She denies paresthesias, neck stiffness, chest pain, SOB, cough, severe abd pain, nausea, vomiting, diarrhea, dysuria, hematuria, melena, LE swelling and additional rashes besides her left foot rash. She is a full code and would want her to make medical decisions for her if she could not make them herself. She mentioned some concern as her father diagnosed with Osler-Jacinto Syndrome when he was 57, she is concerned she could also have the same disease. When asked, she states that she did get nosebleeds as a child but nothing like her father had. Her father had daily nosebleeds which were severe, needing frequent blood and iron infusions. She already spoke to her PCP who will coordinate genetic testing. Please refer to Dr. Bocanegra's attestation for any changes to the treatment plan Allergies Allergy/AdvReac Type Severity Reaction Status Date / Time amoxicillin Allergy Intermediate Rash Verified 12/22/22 12:58 Penicillins Allergy Intermediate HIVES/RASH Verified 12/22/22 12:58 Home Medications Medication Instructions Recorded Confirmed Type clonazepam 0.5 mg tablet 0.5 mg PO HS Leg cramps #30 tabs 11/30/22 12/23/22 Rx Centrum Silver Women 1 tab PO DAILY 12/23/22 12/23/22 History Hair, Skin And Nails Gummies 2 ea PO DAILY 12/23/22 12/23/22 History Vitamin D3 1 tab PO DAILY 12/23/22 12/23/22 History calcium 1 tab PO DAILY 12/23/22 12/23/22 History magnesium 1 tab PO DAILY 12/23/22 12/23/22 History doxycycline hyclate 100 mg capsule 100 mg PO BID #56 caps 12/24/22 Rx Past Med/Surg History Medical History Dyspareunia Encounter for pre-operative examination Headache Herpes, genital Vaginal dryness Vertigo Surgical History Gastric bypass status for obesity H/O tubal ligation Hx of tonsillectomy Family History Aunt Breast cancer Mother Diabetes Grandmother Diabetes Myocardial infarction Grandfather Myocardial infarction Uncle Prostate cancer Denies family history of Ovarian cancer Social History Smoking Status: Never smoker Second Hand Exposure: No; Do You Dip or Chew Tobacco: No; Hx Alcohol Use: Yes Hx Substance Use: No Preferred Language: Turkmen Visual Impairment: No Limitations Hammer Smith Required: No Beliefs That Will Affect Care: None marital status: Current Living Situation: Spouse current occupational status: employed Feels Safe at Home: Yes caffeine: Yes (tea) Dental Care, Regularly: Yes Seatbelt Use: always Sunscreen Use: Yes Assistive Devices: None Physical Exam Physical Exam: Physical Exam: General: In no acute distress, stated age, well-nourished, good hygiene, non- toxic appearing HEENT: Normocephalic, atraumatic, no scleral icterus, pupils around round, symmetrical, and reactive to light, moist mucus membranes, trachea midline, no thyromegaly Chest/Pulm: No respiratory distress, symmetrical chest expansion, clear breath sounds throughout Cardiac: tachycardic rate, regular rhythm, no murmurs noted Abdomen: Negative for ascites and bruising, normoactive bowel sounds, soft, non-tender to palpation throughout Musculoskeletal: Able to flex chin to chest without pain/stiffness, no neck or back pain/stiffness when passively flexing the BL hips and knees, Symmetrical and without signs of acute trauma, upper and lower extremities with full ROM, no atrophy, spasticity, or flaccidity Extremities: Radial, dorsalis pedis, and posterior tibial pulses are intact and symmetrical, no edema noted in the BL LE's Skin: Mild skin discoloration on the dorsal aspect of the left foot without signs of cellulitis/infection Neuro: Alert and oriented to person, place, month, year, and president, no focal defects, CN II-XII tested and intact, no tremors noted Psych: No acute distress, calm and cooperative during the exam Results & Data Results & Data Vital Signs (Past 12 Hours) Vital Signs Temp Pulse Resp BP Pulse Ox O2 Del Method 12/23/22 09:30 101 H 21 145/87 H 98 12/23/22 09:38 107 H 12/23/22 08:14 36.4 C L 105 H 14 122/79 98 Room Air Laboratory Results Abnormal lab results 12/23/22 12/23/22 12/23/22 Range/Units 08:47 08:47 08:47 WBC 1.98 L (4.8-10.8) K/ul RBC 3.99 L (4.20-5.40) M/uL Hct 35.6 L (37.0-47.0) % Plt Count 60 L (130-400) K/uL Neut # (Auto) 1.35 L (1.40-6.50) K/uL Lymph # (Auto) 0.49 L (1.2-3.4) K/uL APTT 32.1 H (21.0-31.0) Seconds Glucose 102 H (70-99(Fasting)) mg/dl Total Bilirubin 1.5 H (0.2-1.0) mg/dl AST 89 H (13-39) U/L ALT 68 H (7-52) U/L Alkaline Phosphatase 121 H (34-104) U/L C-Reactive Protein 6.56 H (0-0.5) mg/dl Urine Protein (Negative) Urine Ketones (Negative) Urine Blood (Negative) Urine Bilirubin (Negative) Urine Urobilinogen (Negative) Ur Leukocyte Esterase (Negative) Urine RBC (Auto) (0-4) /hpf U Hyaline Cast (Auto) (0-5) /lpf U Epithel Cells (Auto) (0-5) /lpf Anaplasma Smear See Comment A Lyme Disease IgM Ab (Negative) 12/23/22 12/23/22 Range/Units 08:47 09:04 WBC (4.8-10.8) K/ul RBC (4.20-5.40) M/uL Hct (37.0-47.0) % Plt Count (130-400) K/uL Neut # (Auto) (1.40-6.50) K/uL Lymph # (Auto) (1.2-3.4) K/uL APTT (21.0-31.0) Seconds Glucose (70-99(Fasting)) mg/dl Total Bilirubin (0.2-1.0) mg/dl AST (13-39) U/L ALT (7-52) U/L Alkaline Phosphatase (34-104) U/L C-Reactive Protein (0-0.5) mg/dl Urine Protein 1+ H (Negative) Urine Ketones 1+ H (Negative) Urine Blood 3+ H (Negative) Urine Bilirubin 1+ H (Negative) Urine Urobilinogen Positive H (Negative) Ur Leukocyte Esterase Trace H (Negative) Urine RBC (Auto) >30 H (0-4) /hpf U Hyaline Cast (Auto) 10-30 H (0-5) /lpf U Epithel Cells (Auto) >30 H (0-5) /lpf Anaplasma Smear Lyme Disease IgM Ab Positive A (Negative) Diagnostic Findings Chest X-Ray 12/23/22 08:25 XR chest 1V portable CLINICAL HISTORY: Fever TECHNIQUE: Single frontal radiograph of the chest was obtained. Comparison: Comparison is made to chest radiograph 12/12/2008 FINDINGS: No lines and tubes are seen. The cardiomediastinal silhouette is normal. The lungs are clear. No evidence of pleural effusion or pneumothorax. IMPRESSION: No acute abnormalities and in particular no radiographic evidence of pneumonia. ACT 112: Negative or not required by law. Electronically signed by: Kehinde Norton M.D. 12/23/2022 9:06 AM ECG Additional Comments: Sinus rhythm with short AL Nonspecific ST abnormality Abnormal ECG When compared with ECG of 25-FEB-2022 20:48, No significant change was found Code Status & VTE Plan Code Status Full code VTE Prophylaxis Plan VTE Prophylaxis will be ordered: Yes Supervising Physician Co-Signing Physician Notes I personally saw and examined the patient. I verified all may points and agree with Bo Moses PA-C with the following exceptions and/or additions: 62 year old female presents to the ER with 2 weeks of generalized weakness, aches, fevers and chills. Bite on left foot improved on Keflex over the last week. O/E A&Ox3, HS RRR, no murmurs, Chest CTAB, Abdo SNT, Dark erythema on left foot without swelling A/P Anaplasmosis and lyme disease - doxycycline 100mg PO BID, monitor LFTs (stop acetaminophen and NSAIDs) PG Care Time/CCT Total # of Minutes Spent Total Time Spent with Patient: Total time spent is greater than 50% in coordination of care (as documented) at patient's floor/unit and/or counseling patient: Coding [place] [address] INT INP/OBS CARE 2/55MIN Patient Type Established Medical Decision Making High Complexity Diagnoses Anaplasmosis A77.49 Lyme disease A69.20 Elevated LFTs R79.89 Thrombocytopenia D69.6 Splenomegaly R16.1 Leukopenia D72.819 Anxiety F41.9
[2022-12-23] MEDS ORDERED: CALCIUM CARBONATE 500 MG CHEWABLE TAB PO PRN (15:20)
[2022-12-23] MEDS ORDERED: ENOXAPARIN INJ 40 MG/0.4 ML SYR SQ SCH (21:00)
[2022-12-23] MEDS ORDERED: clonazePAM 0.5 MG TAB PO SCH (21:00)
[2022-12-23] MEDS: DOXYCYCLINE HYCLATE 100 MG CAP PO SCH (22:46)
[2022-12-24 07:12] LABS: Hematocrit (blood only) 32.8 % (37.0-47.0); Mean Corpuscular Hemoglobin 30.6 pg (25.0-34.0); Mean Corpuscular Hgb Conc 33.5 g/dL (32.0-36.0); Mean Corpuscular Volume 91.4 fL (80.0-100.0); Platelet Count 63 K/uL (130-400); RDW Coefficient of Variation 13.3 % (11.5-14.5); RDW Standard Deviation 43.6 fL (36.4-46.3); Red Blood Count 3.59 M/uL (4.20-5.40)
[2022-12-24 07:29] LABS: Albumin Globulin Ratio 1.2 (0.9-2); BUN Creatinine Ratio 12.7 (10-20); Bilirubin,Total 0.7 mg/dl (0.2-1.0); Calcium 8.2 mg/dl (8.6-10.3); Creatinine Clr Calc Pharmacy 101.7 ml/min; Est GFR (African American) 111.4 ml/min; Est GFR (Non-African American) 96.1 ml/min; Globulin 2.6 gm/dl (2.5-4.0); Magnesium 1.8 mg/dl (1.7-2.4); Potassium 3.7 mmol/L (3.5-5.1); Total Protein 5.6 gm/dl (6.0-8.3)
[2022-12-24 08:01] LABS: ANC (manual) 0.81 K/uL (1.4-6.5); Lymphocytes % (manual) 35 %; Monocytes # (manual) 0.07 K/uL (0.11-0.59); Monocytes % (manual) 3 %; Neutrophils % (manual) 35 %; Reactive Lymphocytes % (manual) 26 %
[2022-12-24] MEDS: DOXYCYCLINE HYCLATE 100 MG CAP PO SCH (08:57)
--- NOTE | 2022-12-24 11:25 | Discharge Summary ---
Date of Service December 24, 2022 Admission HPI Per Admitting Provider Aba is a 62 year old female with a PMH significant for genital herpes and anxiety who presented to the [facility] on 12/23 at the recommendation of her PCP for progressive thrombocytopenia and generalized weakness. In the ED the patient was noted to be tachycardic in the low 100's but otherwise stable. Labs were significant for a leukopenia of 1.98 (up from 1.88 yesterday), stable Hgb of 12, platelet count of 60 (down from 77 yesterday), neutrophil count of 1.35, lymphocyte count of 0.49), Total bili of 1.5, AST of 89, ALT of 68, CRP of 6.56, UA positive for 1+ protein, 1+ ketones, 3+ blood, positive urobilinogen, trace leukocyte esterase, and > 30 epithelial cells, Lyme IgM and Anaplasma positive. Chest xray was read as "No acute abnormalities and in particular no radiographic evidence of pneumonia.". Prior to admission the patient was given 1gm IV Acetaminophen, a dose of PO Doxycycline, and ordered 2gm Ceftriaxone and 1L NSS. AT the time of the exam the patient was sitting in bed in no acute distress with her sitting bedside. She states that she first started to developed generalized weakness/fatigue approximately 2 weeks ago. She is typically a very active person but was too fatigued to do normal house/yard work. Approximately 9 days ago she noticed swelling and what appeared to be a bug bite on the dorsal aspect of her left foot. She thought that she was bitten by ants while outside working. She called a helping associated with her insurance on 12/18 and was prescribed a 7 day course of Keflex for possible cellulitis of the left foot. She was having ongoing fevers, chills, generalized body aches with headaches and some cervical neck pain. Because of ongoing symptoms she presented to the [facility] ED on 12/20. She was told that she had some splenomegaly with decreased WBC and platelet counts, thought to be caused by a viral illness. They discharged her home with plans for close PCP follow up. Her PCP ran follow up labs finding progressive leukopenia and thrombocytopenia and recommended she come back to the ED for further evaluation. When asked, she says she has some upper abdominal fullness/bloating but denies any actual abdominal pain. She has been taking 500 mg PO tylenol approximately 4-6 times daily for the past week for her symptoms. She denies paresthesias, neck stiffness, chest pain, SOB, cough, severe abd pain, nausea, vomiting, diarrhea, dysuria, hematuria, melena, LE swelling and additional rashes besides her left foot rash. She is a full code and would want her to make medical decisions for her if she could not make them herself. She mentioned some concern as her father diagnosed with Osler-Jacinto Syndrome when he was 57, she is concerned she could also have the same disease. When asked, she states that she did get nosebleeds as a child but nothing like her father had. Her father had daily nosebleeds which were severe, needing frequent blood and iron infusions. She already spoke to her PCP who will coordinate genetic testing. Please refer to Dr. Bocanegra's attestation for any changes to the treatment plan Principal Diagnosis Anaplasmosis and Lyme disease, leukopenia, elevated liver enzymes Discharge Exam General-alert and oriented x3, no fevers, no chills HEENT-head atraumatic and normocephalic, pupils equal and reactive to light, extraocular muscles intact Neck-no lymphadenopathy or thyromegaly, trachea midline Chest-clear to auscultation percussion. No rales wheezing or rhonchi Cardiac-regular rate and rhythm, normal S1 and S2 Abdomen-normal bowel sounds, nontender, no hepatosplenomegaly Extremities-no cyanosis, clubbing, or edema Neuro-cranial nerves II through XII intact, motor and sensory function within normal limits, strength symmetrical , no focal deficits Psych-normal affect, normal mood Discharge Data Allergies Allergy/AdvReac Type Severity Reaction Status Date / Time amoxicillin Allergy Intermediate Rash Verified 12/22/22 12:58 Penicillins Allergy Intermediate HIVES/RASH Verified 12/22/22 12:58 Consultations 12/23/22 10:58 ED Decision to Admit Stat Hospital Course (1) Anaplasmosis: She is currently asymptomatic. She will take doxycycline orally for 4 weeks. Follow-up with PCP. (2) Lyme disease: She will take doxycycline orally for 4 weeks (3) Elevated LFTs: Mild. Should return to baseline. Further follow-up as an outpatient. (4) Thrombocytopenia: Apparently due to anaplasmosis and Lyme disease. Further outpatient labs should be considered. Avoid aspirin for now. (5) Splenomegaly: Noted on CT of the abd/pelvis on 12/20. Currently asymptomatic. Anticipate eventual resolution. Outpatient follow-up warranted (6) Leukopenia: Due to Lyme disease and anaplasmosis. Repeat lab study at a later date. No intervention necessary at this time. (7) Anxiety: Stable. Continue HS clonazepam Plan Home today, December 24, on oral doxycycline. Follow-up with PCP to repeat liver enzyme testing and monitor platelet count. Total Time Total Time Spent Total Time Spent (In Minutes): 40 minutes Discharge Plan Discharge Items Patient Disposition: Home - Self-Care Reason For Visit: ANAPLASMA + LYME POS, PPLATELETS OF 60 Discharge Diagnosis: Anaplasmosis, Lyme disease, leukopenia, thrombocytopenia Activity: Resume your previous activity Non-emergency contact: Primary Care Provider Call non-emergency contact if: your symptoms worsen Follow-up/Referrals: Birgit Chan MD [Primary Care Provider] - Diet: Regular Addtl Attending Provider Instructions: Take doxycycline 100 mg twice a day for 4 weeks Pending Studies at Discharge: No Stand-Alone Forms: [employer], Smoking Cessation Medications and DC Order Prescriptions: New doxycycline hyclate 100 mg Capsule 100 mg PO BID Qty: 56 0RF Continued clonazepam 0.5 mg tablet 0.5 mg PO HS Qty: 30 3RF Rx Instructions: PDMP Searched, last filled on 07/06/22 for 30 days, okay to fill Centrum Silver Women 1 tab PO DAILY Hair, Skin And Nails Gummies 2 ea PO DAILY Rx Instructions: patient unsure of strength Vitamin D3 1 tab PO DAILY Rx Instructions: patient unsure of strength calcium 1 tab PO DAILY Rx Instructions: patient unsure of strength magnesium 1 tab PO DAILY Rx Instructions: patient unsure of strength Discontinued acetaminophen 500 mg Tablet 500 mg PO Q4H PRN (Reason: Fever) cephalexin 500 mg capsule 500 mg PO BID Rx Instructions: Patient stated she has 4 capsules left as of today 12/23/2022 ( she still has today and tomorrow's dose) Discharge Orders: Discharge Order (Routine); Ordered 12/24/22 Ordered By: Adrian Vazquez Admission Data Admit Date/Time: 12/23/22 11:09 Attending Provider: Adrian Vazquez Admit Provider: Reno Bocanegra Primary Care Provider: Birgit Chan Other Providers: Reno Bocanegra Coding Level of Care Code 08957 INP/OBS DISCH >30 MIN Diagnoses Anaplasmosis A77.49 Lyme disease A69.20 Elevated LFTs R79.89 Thrombocytopenia D69.6 Splenomegaly R16.1 Leukopenia D72.819 Anxiety F41.9
--- NOTE | 2022-12-24 20:30 | Electrocardiogram Report ---
Test Reason : Blood Pressure : / mmHG Vent. Rate : 099 BPM Atrial Rate : 099 BPM P-R Int : 080 ms QRS Dur : 076 ms QT Int : 344 ms P-R-T Axes : 045 030 041 degrees QTc Int : 441 ms Sinus rhythm with short SC Nonspecific ST abnormality Abnormal ECG When compared with ECG of 25-FEB-2022 20:48, No significant change was found Confirmed by Olvin Ceballos ([id number]) on 12/24/2022 8:30:44 PM Referred By: Confirmed By:Olvin Ceballos
[2022-12-27 00:03] LABS: 18KDIGG Band NON-REACTIVE; 23KDIGG Band NON-REACTIVE; 23KDIGM Band REACTIVE; 28KDIGG Band NON-REACTIVE; 30KDIGG Band NON-REACTIVE; 39KDIGG Band NON-REACTIVE; 39KDIGM Band REACTIVE; 41KDIGG Band REACTIVE; 41KDIGM Band NON-REACTIVE; 45KDIGG Band NON-REACTIVE; 58KDIGG Band REACTIVE; 66KDIGG Band NON-REACTIVE; 93KDIGG Band NON-REACTIVE; Lyme Antibodies, WB IgG NEGATIVE (NEGATIVE); Lyme Antibodies, WB IgM POSITIVE (NEGATIVE)
[2022-12-28 00:38] LABS: Babesia microti DNA Not Detected (Not Detected); Ehrlichia chaff IgG Ab <1:64 (<1:64); Ehrlichia chaff IgM Ab <1:20 (<1:20)
[2022-12-29 07:08] LABS: Ehrlichia chaff DNA Bld Negative (Negative)
== END 2022-12-24 12:36 | disposition home or self-care (01) | DRG 868 ==
LOC: ED 08:11 → 2N 11:09 → SUATTDRO 11:09 → INTOOBSV 11:09 → 2N 13:09